=== PATIENT | male | born 1950 | race Caucasian/White ===

== ENCOUNTER 2018-03-06 15:40 | Emergency (ER) | payer MEDICARE, MEDICAID ==
[2018-03-06 15:47] VITALS: BP 124/75
--- NOTE | 2018-03-06 16:19 | ER Document Report ---
ED Extremity Problem, Lower - General Chief Complaint: Foot Injury Stated Complaint: RIGHT FOOT INJURY Time Seen by Provider: 03/06/18 16:08 Mode of Arrival: Ambulatory Information source: Patient Notes: 67-year-old male presents to ED for complaint of pain and swelling to his right foot for 3 weeks. He states they dropped a cabinet on his foot 3 weeks ago and is been painful and swollen since then. He straight states he tried to soak it in some Epson salt but it has not helped. He is on blood thinners Xarelto and aspirin. He has a history of [place] high blood pressure cholesterol thyroid nodules. He has a pacemaker and a defibrillator. TRAVEL OUTSIDE OF THE [place] IN LAST 30 DAYS: No - HPI Patient complains to provider of: Injury, Pain, Swelling Location: Foot Occurred: Other - 3 weeks Where: Home, Indoors Onset/Duration: Persistent Quality of pain: Achy, Sharp Severity: Mild Pain Level: 2 Context: Other Recent injury: Yes Associated symptoms: Painful ambulation Exacerbated by: Hanging down, Movement, Walking Relieved by: Nothing - Related Data Allergies/Adverse Reactions: No Known Allergies Allergy (Verified 03/06/18 15:41) Past Medical History - Social History Smoking Status: Never Smoker Chew tobacco use (# tins/day): No Frequency of alcohol use: None Drug Abuse: None Family History: Reviewed & Not Pertinent Patient has suicidal ideation: No Patient has homicidal ideation: No - Past Medical History Cardiac Medical History: Reports: Hx Heart Attack - x2, Hx Hypercholesterolemia , Hx Hypertension Pulmonary Medical History: Reports: Hx Asthma, Hx Bronchitis EENT Medical History: Reports: None Neurological Medical History: Reports: None Endocrine Medical History: Reports: None Renal/ Medical History: Reports: None Malignancy Medical History: Reports None GI Medical History: Reports: None Musculoskeltal Medical History: Reports Hx Arthritis, Reports Hx Musculoskeletal Deformity, Reports Hx Musculoskeletal Trauma Skin Medical History: Reports None Psychiatric Medical History: Reports: None Traumatic Medical History: Reports: Hx Fractures - Foot Past Surgical History: Reports: Hx Abdominal Surgery - 2 hernias, Hx Cardiac Catheterization - 2stents, Hx Cardiac Surgery - pacer/defib, Hx Orthopedic Surgery - 2 back sx - Immunizations Immunizations up to date: Yes Hx Diphtheria, Pertussis, Tetanus Vaccination: Yes - 08-16-12 Review of Systems - Review of Systems Constitutional: No symptoms reported EENT: No symptoms reported Cardiovascular: No symptoms reported Respiratory: No symptoms reported Gastrointestinal: No symptoms reported Genitourinary: No symptoms reported Male Genitourinary: No symptoms reported Musculoskeletal: Other - Pain swelling and bruising to the right foot for 3 weeks after he dropped a cabinet on his foot Skin: No symptoms reported Hematologic/Lymphatic: No symptoms reported Neurological/Psychological: No symptoms reported Physical Exam - Vital signs Vitals: Temp Pulse Resp BP Pulse Ox 98.8 F 80 18 124/75 96 03/06/18 15:46 03/06/18 15:46 03/06/18 15:46 03/06/18 15:46 03/06/18 15:46 Interpretation: Normal - General General appearance: Appears well, Alert - HEENT Head: Normocephalic, Atraumatic Eyes: Normal Pupils: PERRL - Respiratory Respiratory status: No respiratory distress Chest status: Nontender Breath sounds: Normal Chest palpation: Normal - Cardiovascular Rhythm: Regular Heart sounds: Normal auscultation Murmur: No - Abdominal Inspection: Normal Distension: No distension Bowel sounds: Normal Tenderness: Nontender Organomegaly: No organomegaly - Back Back: Normal, Nontender - Extremities General upper extremity: Normal inspection, Nontender, Normal color, Normal ROM , Normal temperature General lower extremity: Normal temperature, Normal weight bearing. No: Jennifer' s sign Foot: Tender, Ecchymosis, Edema, Metatarsal compress. pain, No evidence of FB, Other - right foot. No: Tender 5th metatarsal - Neurological Neuro grossly intact: Yes Cognition: Normal Orientation: AAOx4 [place] Coma Scale Eye Opening: Spontaneous [place] Coma Scale Verbal: Oriented [place] Coma Scale Motor: Obeys Commands [place] Coma Scale Total: 15 Speech: Normal Motor strength normal: LUE, RUE, LLE, RLE Sensory: Normal - Psychological Associated symptoms: Normal affect, Normal mood - Skin Skin Temperature: Warm Skin Moisture: Dry Skin Color: Normal, Ecchymosis - across the top of the right foot Course - Re-evaluation Re-evalutation: 03/06/18 16:48 Was discussed with patient and patient was given a written report of the x-ray. Patient to follow-up with orthopedics by telephone to schedule follow-up appointment for his fractured foot. Patient will be treated with crutches and given next directions on use of crutches. Patient elevate and ice the foot. - Vital Signs Vital signs: Temp Pulse Resp BP Pulse Ox 98.8 F 80 18 124/75 96 03/06/18 15:46 03/06/18 15:46 03/06/18 15:46 03/06/18 15:46 03/06/18 15:46 - Diagnostic Test Radiology reviewed: Image reviewed, Reports reviewed Procedures - Immobilization Right Foot Time completed: 16:49 Immobilizer type: Crutches, Posterior ankle Performed by: PCT Post-Proc Neuro Vasc Exam: Normal Alignment checked and good: Yes Discharge - Discharge Clinical Impression: Foot fracture, right Qualifiers: Encounter type: initial encounter Fracture type: closed Qualified Code(s): S92.901A - Unspecified fracture of right foot, initial encounter for closed fracture Condition: Stable Disposition: HOME, SELF-CARE Additional Instructions: Foot Fracture You have a fracture in one of the small bones of the foot. Some foot fractures are very serious, while others are no more serious than a sprain. This fracture should heal well, but requires protection for proper healing. Initially, you should elevate and ice pack the foot, and bear no weight on it. Usually, a cast or a walking boot will be required. Some milder foot fractures can be managed with temporary rest, then a firm shoe. Your physician has determined the seriousness of your foot fracture and has outlined the treatment plan for you. You should follow up as instructed to insure that the fracture heals without complications. Call the doctor or return at once if pain or swelling becomes severe, if a re-injury occurs, or if any part of the foot becomes numb. SPLINT PRECAUTIONS: A splint has been placed. This will protect the area while healing begins. Leave the splint in place until you follow-up with the orthopedic doctor or he instructed to remove the splint. Please call the orthopedic doctor tomorrow morning and schedule a follow-up appointment. USE OF CRUTCHES: The doctor has recommended that you not bear weight at this time. You will need to use crutches. Adjust the crutches so the tops come to about two inches under the armpit while you are standing upright. Use your hands -- not your armpits -- to support your weight. To get into a chair, support yourself with one crutch on the injured side. Hold the chair with the other hand, then lower yourself while putting all your weight on the good leg. Going up stairs is `good leg up, step up, then bring up crutches and bad leg.' Down stairs is `bad leg and crutches down, then bring good leg down.' If you develop numbness or swelling in an arm or hand, you are using the crutches incorrectly. Return if you are having any problems with the crutches. ICE & ELEVATION: Apply ice packs frequently against the painful area. Many different schedules are recommended, such as "20 minutes on, 20 minutes off" or "one hour ice, two hours rest." If you need to work, you may need to go longer between ice treatments. You should plan to have the area ice packed AT LEAST one- fourth of the time. The ice should be applied over the wrap, tape, or splint, or over a layer of cloth -- not directly against the skin. Some ice bags have a built-in cloth and can be put directly on the skin. Your injured part should be elevated as much as possible over the next 48 hours. Try to keep the injury above the level of the heart. Avoid use of the injured area. Elevation and rest will decrease the swelling. Acetaminophen Acetaminophen may be taken for pain relief or fever control. It's much safer than aspirin, offering a wider range of "safe" dosages. It is safe during . Some brand names are Tylenol, Panadol, Datril, Anacin 3, Tempra, and Liquiprin. Acetaminophen can be repeated every four hours. The following are maximum recommended dosages: WEIGHT Dose Drops Elixir Chewable( 80mg) (LBS.) drprs=droppers tsp=teaspoon 6 40 mg .4 ml (1/2) 6-11 80 mg .8 ml (full) 1/2 tsp 1 tab 12-16 120 mg 1 1/2 drprs 3/4 tsp 1 1/2 tabs 17-23 160 mg 2 drprs 1 tsp 2 tabs 24-30 240 mg 3 drprs 1 1/2 tsp 3 tabs 30-35 320 mg 2 tsp 4 tabs 36-41 360 mg 2 1/4 tsp 4 1 /2 tabs 42-47 400 mg 2 1/2 tsp 5 tabs 48-53 480 mg 3 tsp 6 tabs 54-59 520 mg 3 1/4 tsp 6 1 /2 tabs 60-64 560 mg 3 1/2 tsp 7 tabs 65-70 600 mg 3 3/4 tsp 7 1 /2 tabs 71-76 640 mg 4 tsp 8 tabs 77-82 720 mg 4 1/2 tsp 9 tabs 83-88 800 mg 5 tsp 10 tabs >89 pounds or adults 650 mg to 900 mg Acetaminophen can be repeated every four hours. Maximum daily dose not to exceed 4000 mg. These maximum recommended dosages are slightly higher than the dosages written on the product container, but these dosages are very safe and well below the toxic dosage for acetaminophen. FOLLOW-UP CARE: If you have been referred to a physician for follow-up care, call the physician s office for an appointment as you were instructed or within the next two days. If you experience worsening or a significant change in your symptoms, notify the physician immediately or return to the Emergency Department at any time for re-evaluation. Referrals: TAMERA HERRMANN MD [ACTIVE STAFF] - Follow up as needed
--- NOTE | 2018-03-06 16:45 | RADIOLOGY REPORT (SQ) ---
EXAM DESCRIPTION: FOOT RIGHT COMPLETE COMPLETED DATE/TIME: 03/06/2018 4:31 pm REASON FOR STUDY: pain injury dropped cabinet on the foot 3 weeks ag COMPARISON: None. NUMBER OF VIEWS: Three views. TECHNIQUE: AP, lateral and oblique radiographic images acquired of the right foot. LIMITATIONS: None. FINDINGS: MINERALIZATION: Normal. BONES: Subacute nondisplaced transverse fracture of the 2nd digit proximal phalanx distal diaphysis; on the frontal radiograph, this appears to extend to the articular surface. JOINTS: No effusions. SOFT TISSUES: No soft tissue swelling. No foreign body. OTHER: No other significant finding. IMPRESSION: Nondisplaced transverse fracture of the 2nd digit proximal phalanx with apparent extensi on to the articular surface. TECHNICAL DOCUMENTATION: JOB ID: [id number] [employer]- All Rights Reserved Reading location - IP/workstation name: [email or web address]
== END 2018-03-06 17:08 | disposition home or self-care (01) ==
LOC: ER 15:40
PROC: 2W3QX1Z Immobilization of Right Lower Leg using Splint (ICD-10-PCS; principal; 2018-03-06)
DX: S92.901A Unspecified fracture of right foot, initial encounter for closed fracture (principal); W20.8XXA Other cause of strike by thrown, projected or falling object, initial encounter; Y92.009 Unspecified place in unspecified non-institutional (private) residence as the place of occurrence of the external cause; Z79.02 Long term (current) use of antithrombotics/antiplatelets; Z95.810 Presence of automatic (implantable) cardiac defibrillator; I25.2 Old myocardial infarction; E78.00 Pure hypercholesterolemia, unspecified; I10 Essential (primary) hypertension
CPT/HCPCS: 99283

== ENCOUNTER 2018-10-14 23:05 | Emergency (ER) | payer MEDICARE, MEDICAID ==
[2018-10-15] MEDS ORDERED: METHYLPREDNISOLONE INJ 125 MG/2 ML SDV IV ONE (01:08)
[2018-10-15] MEDS ORDERED: IPRATROPIUM/ALBUTEROL 0.5-2.5 MG/3 ML AMPUL NEB ONE (01:08)
[2018-10-15] MEDS ORDERED: LIDOCAINE 2% INJ-PF (20 MG/ML) 10 ML AMPUL NEB ONE (01:09)
[2018-10-15] MEDS ORDERED: BENZONATATE 100 MG CAPSULE PO ONE (01:09)
[2018-10-15] MEDS ORDERED: ACETAMINOPHEN 325 MG TABLET PO ONE (01:09)
[2018-10-15] MEDS ORDERED: RINGERS SOLUTION,LACTATED 500 ML IV ONE (01:09)
--- NOTE | 2018-10-15 01:11 | ER Document Report ---
ED General - General Chief Complaint: Shortness Of Breath Stated Complaint: DIFFICULTY BREATHING Time Seen by Provider: 10/15/18 00:40 Notes: Patient is a 68-year-old male with a past medical history of hypertension, hyperlipidemia, CHF, pacemaker and A. fib later placement, COPD, does not currently smoke who presents with 3 days of cough, body aches, sore throat, nasal congestion, found to have fever at time of presentation. States symptoms started gradually and are not improving prompting him to come to the hospital. States that he has had a persistent, nagging cough that often makes it difficult for him to breathe. He has not tried anything for relief of his symptoms at home. Nothing seems to worsen his symptoms. Receive both an influenza and pneumococcal vaccination this year. No history of similar symptoms in the past. Has not seen his primary care doctor regarding today's concerns. TRAVEL OUTSIDE OF THE [place] IN LAST 30 DAYS: No - Related Data Allergies/Adverse Reactions: No Known Allergies Allergy (Verified 03/06/18 15:41) Past Medical History - General Information source: Patient - Social History Smoking Status: Former Smoker Frequency of alcohol use: None Drug Abuse: None Lives with: Spouse/Significant other Family History: Reviewed & Not Pertinent - Past Medical History Cardiac Medical History: Reports: Hx Heart Attack - x2, Hx Hypercholesterolemia, Hx Hypertension Pulmonary Medical History: Reports: Hx Asthma, Hx Bronchitis Renal/ Medical History: Denies: Hx Peritoneal Dialysis Musculoskeletal Medical History: Reports Hx Arthritis, Reports Hx Musculoskeletal Deformity, Reports Hx Musculoskeletal Trauma Traumatic Medical History: Reports: Hx Fractures - Foot Past Surgical History: Reports: Hx Abdominal Surgery - 2 hernias, Hx Cardiac Catheterization - 2stents, Hx Cardiac Surgery - pacer/defib, Hx Orthopedic Surgery - 2 back sx - Immunizations Immunizations up to date: Yes Hx Diphtheria, Pertussis, Tetanus Vaccination: Yes - 08-16-12 Review of Systems - Review of Systems Notes: Constitutional: Positive for fever. HENT: Positive for sore throat. Eyes: Negative for visual changes. Cardiovascular: Negative for chest pain. Respiratory: Positive for shortness of breath and cough Gastrointestinal: Negative for abdominal pain, vomiting or diarrhea. Genitourinary: Negative for dysuria. Musculoskeletal: Negative for back pain. Skin: Negative for rash. Neurological: Negative for headaches, weakness or numbness. 10 point ROS negative except as marked above and in HPI. Physical Exam - Vital signs Vitals: Temp Pulse Resp BP Pulse Ox 101.2 F H 100 24 H 118/66 94 10/14/18 23:37 10/14/18 23:37 10/14/18 23:37 10/14/18 23:37 10/14/18 23:37 Interpretation: Tachypneic, Febrile Notes: PHYSICAL EXAMINATION: GENERAL: Appears moderately unwell but in no acute distress HEAD: Atraumatic, normocephalic. EYES: Pupils equal round and reactive to light, extraocular movements intact, sclera anicteric, conjunctiva are normal. ENT: nares patent, oropharynx clear without exudates. Amount of dry mucous membranes. NECK: Normal range of motion, supple without lymphadenopathy LUNGS: Scattered expiratory wheezing in all lung dinh. HEART: Regular rate and rhythm without murmurs ABDOMEN: Soft, nontender, normoactive bowel sounds. No guarding, no rebound. No masses appreciated. EXTREMITIES: Normal range of motion, no pitting or edema. No cyanosis. NEUROLOGICAL: No focal neurological deficits. Moves all extremities spontaneously and on command. PSYCH: Normal mood, normal affect. SKIN: Warm, Dry, normal turgor, no rashes or lesions noted. Course - Re-evaluation Re-evalutation: 10/15/18 01:10 Presentation of a moderately ill-appearing 68-year-old male with fever, shortness of breath, persistent cough and body aches. Overall picture concerning for influenza versus bacterial pneumonia. Patient will undergo chest x-ray, standard laboratory assessment including blood cultures, venous blood gas, lactate. IV access will be established. Patient will begin on gentle fluid resuscitation as has a history of CHF. Antipyresis with acetaminophen provided. Will also begin nebulizer treatments as patient does have a history of COPD. 10/15/18 03:06 Chest x-ray without any evidence of acute infiltrate. Labs are broadly unremarkable. Patient is maintaining saturations of 93-94% on room air and rev iew of previous records shows the patient is consistently between 93 and 94% at baseline secondary to underlying COPD. Although influenza testing is negative patient's clinical picture is most consistent with influenza and this is likely a false negative test. Patient does have available nebulizer treatments at home. Has been started on a 5-day course of prednisone. Risks and benefits conversation was had regarding the use of Tamiflu and patient did decline. At this time will discharge with return precautions and follow-up recommendations. Verbal discharge instructions given a the bedside and opportunity for questions given. Medication warnings reviewed. Patient is in agreement with this plan and has verbalized understanding of return precautions and the need for primary care follow-up in the next 24-48 hours. - Vital Signs Vital signs: Temp Pulse Resp BP Pulse Ox 101.2 F H 100 24 H 118/66 94 10/14/18 23:37 10/14/18 23:37 10/14/18 23:37 10/14/18 23:37 10/14/18 23:37 - Laboratory Result Diagrams: 10/15/18 01:05 10/15/18 01:05 Laboratory results interpreted by me: 10/15/18 10/15/18 10/15/18 01:05 01:05 01:05 WBC 12.1 H RBC 4.13 L Hgb 12.8 L Hct 37.1 L Monocytes % 13.7 H Absolute Neutrophils 8.7 H Absolute Monocytes 1.7 H VBG pH 7.43 H Sodium 134.9 L Glucose 154 H - Diagnostic Test Radiology reviewed: Image reviewed, Reports reviewed Radiology results interpreted by me: 10/15/18 03:08 Chest x-ray: No acute infiltrate or pneumothorax - EKG Interpretation by Me Additional EKG results interpreted by me: 10/15/18 03:08 Ventricularly paced rhythm, rate 92. No ST elevations or depressions. Discharge - Discharge Clinical Impression: Shortness of breath, COPD exacerbation, Lower respiratory infection Fever Qualifiers: Fever type: unspecified Qualified Code(s): R50.9 - Fever, unspecified Condition: Stable Disposition: HOME, SELF-CARE Additional Instructions: You were seen for a COPD exacerbation. Your symptoms improved with treatment here in the emergency department. However, it is very important that you return to the emergency department immediately if you began to have worsening difficulty breathing that does not respond to your normal home nebulizers. You are also being sent home on a five-day course of steroids that you should start taking tomorrow. In regards to your fever and additional symptoms: these are likely due to a vir al infection either influenza or similar virus. The only treatment at this time is supportive care including drinking plenty of fluids, Tylenol and ibuprofen. Your symptoms will likely last for 7-10 days. Please return to the emergency department immediately if you become confused, have persistent vomiting, pass out, have severe headache, or have any other symptoms that are worrisome to you. Follow-up with your primary care doctor in the next 24-48 hours. Prescriptions: Benzonatate [Tessalon Perles 100 mg Capsule] 100 mg PO Q8HP PRN #40 capsule PRN Reason: Prednisone [Deltasone 20 mg Tablet] 2 tab PO DAILY 5 Days tablet
[2018-10-15 01:22] LABS: ABSOLUTE LYMPHOCYTES (AUTO) 1.7 10^3/uL (0.5-4.7); ABSOLUTE MONOCYTES (AUTO) 1.7 10^3/uL (0.1-1.4); ABSOLUTE NEUT (AUTO) 8.7 10^3/uL (1.7-8.2); BASOPHILS % (AUTO) 0.3 % (0-2); EOSINOPHILS % (AUTO) 0.2 % (0-6); HEMATOCRIT 37.1 % (37.9-51.0); HEMOGLOBIN 12.8 g/dL (13.5-17.0); LYMPHOCYTES % (AUTO) 13.9 % (13-45); MEAN CORPUSCULAR HEMOGLOBIN 30.9 pg (27.0-33.4); MEAN CORPUSCULAR HGB CONC 34.4 g/dL (32.0-36.0); MEAN CORPUSCULAR VOLUME 90 fl (80-97); MONOCYTES % (AUTO) 13.7 % (3-13); PLATELET COUNT 197 10^3/uL (150-450); RED BLOOD COUNT 4.13 10^6/uL (4.35-5.55); RED CELL DISTRIBUTION WIDTH 13.9 % (11.5-14.0); SEGMENTED NEUTROPHILS % (AUTO) 71.9 % (42-78); TOTAL CELLS COUNTED % (AUTO) 100 %; VENOUS BLOOD BASE EXCESS 0.1 mmol/L; VENOUS BLOOD HCO3 24.1 mmol/L (20-32); VENOUS BLOOD PH 7.43 (7.30-7.42); WHITE BLOOD COUNT 12.1 10^3/uL (4.0-10.5)
[2018-10-15 01:40] LABS: ANION GAP 14 (5-19); BLOOD UREA NITROGEN 19 mg/dL (7-20); CALCIUM 8.8 mg/dL (8.4-10.2); CARBON DIOXIDE 23 mmol/L (22-30); CHLORIDE 98 mmol/L (98-107); GLUCOSE 154 mg/dL (75-110); POTASSIUM 4.2 mmol/L (3.6-5.0); SODIUM 134.9 mmol/L (137-145)
--- NOTE | 2018-10-15 01:46 | RADIOLOGY REPORT (SQ) ---
EXAM DESCRIPTION: XR CHEST 1 VIEW COMPLETED DATE/TME: 10/15/2018 00:40 CLINICAL HISTORY: 68 years Male, sob, fever COMPARISON: 05/22/16 NUMBER OF VIEWS/TECHNIQUE: 1/AP FINDINGS: Adequate lung volume, clear parenchyma, normal cardiac silhouette, and intact bony thorax.Left cardiac stimulator with leads. Smooth chronic thickening at the right pleura. IMPRESSION: No acute cardiopulmonary findings.
[2018-10-15 02:29] LABS: A TYPE INFLUENZA AG NEGATIVE (NEGATIVE); B INFLUENZA AG NEGATIVE (NEGATIVE)
[2018-10-15 03:21] VITALS: BP 126/72
--- NOTE | 2018-10-15 08:41 | EKG REPORT ---
SEVERITY:- ABNORMAL ECG - VENTRICULAR-PACED RHYTHM : Confirmed by: Jacqueline Knox MD 15-Oct-2018 08:40:54
== END 2018-10-15 03:29 | disposition home or self-care (01) ==
LOC: ER 23:05
DX: J44.0 Chronic obstructive pulmonary disease with (acute) lower respiratory infection (principal); J22 Unspecified acute lower respiratory infection; J44.1 Chronic obstructive pulmonary disease with (acute) exacerbation; R05 Cough; J02.9 Acute pharyngitis, unspecified; R09.81 Nasal congestion; R50.9 Fever, unspecified; R06.02 Shortness of breath; I10 Essential (primary) hypertension; I25.2 Old myocardial infarction; Z87.891 Personal history of nicotine dependence
CPT/HCPCS: 93005; 94640; 99285; 96361; 96374; 36415; 87040; 85025; 80048; 82803; 83605; 87804; 71045; 93010; A9270 ×3; J2930; J7120; J3490; J7620

== ENCOUNTER 2018-10-17 04:48 | Inpatient (IN) | payer MEDICARE, MEDICAID ==
[2018-10-17] MEDS ORDERED: IPRATROPIUM/ALBUTEROL 0.5-2.5 MG/3 ML AMPUL NEB ONE ×2 (05:03→05:11)
[2018-10-17] MEDS ORDERED: METHYLPREDNISOLONE INJ 125 MG/2 ML SDV IV ONE (05:04)
[2018-10-17] MEDS ORDERED: NORMAL SALINE 1000 ML 1,000 ML IV ONE (05:04)
[2018-10-17 05:15] LABS: HEMATOCRIT 38.7 % (37.9-51.0); HEMOGLOBIN 13.3 g/dL (13.5-17.0); MEAN CORPUSCULAR HEMOGLOBIN 30.8 pg (27.0-33.4); MEAN CORPUSCULAR HGB CONC 34.4 g/dL (32.0-36.0); MEAN CORPUSCULAR VOLUME 90 fl (80-97); PLATELET COUNT 272 10^3/uL (150-450); RED BLOOD COUNT 4.31 10^6/uL (4.35-5.55); WHITE BLOOD COUNT 14.5 10^3/uL (4.0-10.5)
[2018-10-17] MEDS: MAGNESIUM SULFATE/D5W 1 GM/100 ML RTUPB IV SCH ×2 (05:16→05:43)
[2018-10-17] MEDS ORDERED: IPRATROPIUM/ALBUTEROL 0.5-2.5 MG/3 ML AMPUL NEB PRN (05:22)
[2018-10-17 05:27] LABS: ALANINE AMINOTRANSFERASE 110 U/L (21-72); ALKALINE PHOSPHATASE 56 U/L (38-126); ANION GAP 12 (5-19); ASPARTATE AMINO TRANSFERASE 85 U/L (17-59); BILIRUBIN,DIRECT 0.4 mg/dL (0.0-0.4); BILIRUBIN,TOTAL 0.9 mg/dL (0.2-1.3); BLOOD UREA NITROGEN 22 mg/dL (7-20); CALCIUM 9.1 mg/dL (8.4-10.2); CARBON DIOXIDE 26 mmol/L (22-30); CHLORIDE 100 mmol/L (98-107); GLUCOSE 157 mg/dL (75-110); POTASSIUM 4.5 mmol/L (3.6-5.0); SODIUM 138.3 mmol/L (137-145)
[2018-10-17 05:34] LABS: VENOUS BLOOD BASE EXCESS 3.4 mmol/L; VENOUS BLOOD PCO2 37.3 mmHg (35-63); VENOUS BLOOD PH 7.48 (7.30-7.42)
[2018-10-17 05:36] LABS: ABSOLUTE LYMPHOCYTES# (MANUAL) 1.9 10^3/uL (0.5-4.7); ABSOLUTE MONOCYTES # (MANUAL) 0.6 10^3/uL (0.1-1.4); ABSOLUTE NEUTROPHILS# (MANUAL) 11.9 10^3/uL (1.7-8.2); BASOPHILS % (MANUAL) 0 % (0-2); EOSINOPHILS % (MANUAL) 1 % (0-6); LYMPHOCYTES % (MANUAL) 13 % (13-45); MONOCYTES % (MANUAL) 4 % (3-13); SEGMENTED NEUTROPHILS % (MAN) 82 % (42-78); TOTAL CELLS COUNTED 100
[2018-10-17 05:37] LABS: TOXIC GRANULATION 1+; TOXIC VACUOLATION PRESENT
[2018-10-17 05:38] LABS: ANISOCYTOSIS SLIGHT; BURR CELLS 1+; OVALOCYTES 2+; PLATELET COMMENT ADEQUATE; POIKILOCYTOSIS 2+; TEAR DROP CELLS 2+
--- NOTE | 2018-10-17 05:57 | RADIOLOGY REPORT (SQ) ---
EXAM DESCRIPTION: XR CHEST 2 VIEWS COMPLETED DATE/TME: 10/17/2018 05:05 CLINICAL HISTORY: 68 years Male, sob COMPARISON: 2 days prior. NUMBER OF VIEWS/TECHNIQUE: 1/AP FINDINGS: Moderate left lower retrocardiac consolidate. Mild mixed interstitial and airspace opacity.Atherosclerotic vascular disease. Left cardiac stimulator with leads. Mildly enlarged cardiac silhouette. No pneumothorax. Stable bony thorax. IMPRESSION: Interval worsening includes a moderate left lower retrocardiac consolidate.
--- NOTE | 2018-10-17 05:57 | ER Document Report ---
ED Respiratory Problem - General Chief Complaint: Shortness Of Breath Stated Complaint: DECREASED OXYGEN LEVELS Time Seen by Provider: 10/17/18 05:53 Primary Care Provider: TITO INFANTE MD [Primary Care Provider] - Follow up as needed Notes: Patient is a 68-year-old male with a past medical history of hypertension, h yperlipidemia, CHF, pacemaker and A. fib, COPD, does not currently smoke who presents with 6 days of cough, body aches, nasal congestion, generalized shortness of breath. Patient states he was seen at this facility on 10/14/2018 was given breathing treatments and sent home with a prescription for steroids. Patient states he has been taking his albuterol treatments every 4 hours and has been taking steroids as prescribed. States this morning he noticed he had an increase in respiratory distress and his home oxygen saturation was 86% which is why he re-presents to the emergency room. Patient states he did receive both an influenza and pneumococcal vaccination this year. Review of previous records shows the patient is consistently between 93 and 94% at baseline secondary to underlying COPD. Patient is denying any chest pain or pressure. States it just feels as though it is hard to catch his breath. Patient is obviously tachypneic talking in 1-2 word sentences. TRAVEL OUTSIDE OF THE [place] IN LAST 30 DAYS: No - Related Data Allergies/Adverse Reactions: No Known Allergies Allergy (Verified 03/06/18 15:41) Past Medical History - General Information source: Patient, Relative - Social History Smoking Status: Former Smoker Frequency of alcohol use: None Drug Abuse: None Family History: Reviewed & Not Pertinent Patient has suicidal ideation: No Patient has homicidal ideation: No - Past Medical History Cardiac Medical History: Reports: Hx Congestive Heart Failure, Hx Heart Attack - x2, Hx Hypercholesterolemia, Hx Hypertension Pulmonary Medical History: Reports: Hx Asthma, Hx Bronchitis, Hx COPD Renal/ Medical History: Denies: Hx Peritoneal Dialysis Musculoskeletal Medical History: Reports Hx Arthritis, Reports Hx Musculoskeletal Deformity, Reports Hx Musculoskeletal Trauma Traumatic Medical History: Reports: Hx Fractures - Foot Past Surgical History: Reports: Hx Abdominal Surgery - 2 hernias, Hx Cardiac Ca theterization - 2stents, Hx Cardiac Surgery - pacer/defib, Hx Orthopedic Surgery - 2 back sx - Immunizations Immunizations up to date: Yes Hx Diphtheria, Pertussis, Tetanus Vaccination: Yes - 12-18-12 Review of Systems - Review of Systems Constitutional: See HPI EENT: See HPI Cardiovascular: See HPI Respiratory: See HPI Gastrointestinal: No symptoms reported Genitourinary: No symptoms reported Male Genitourinary: No symptoms reported Musculoskeletal: No symptoms reported Skin: No symptoms reported Hematologic/Lymphatic: No symptoms reported Neurological/Psychological: No symptoms reported Physical Exam - Vital signs Vitals: Temp Pulse Resp BP Pulse Ox 100 F 114 H 32 H 153/84 H 91 L 10/17/18 04:50 10/17/18 04:50 10/17/18 04:50 10/17/18 04:50 10/17/18 04:50 - Notes Notes: GENERAL: Alert, interacts well. Tachypneic HEAD: Normocephalic, atraumatic. EYES: Pupils equal, round, and reactive to light. Extraocular movements intact. ENT: Oral mucosa moist, tongue midline. NECK: Full range of motion. Supple. Trachea midline. LUNGS: No discernible rales, or rhonchi. Diminished inspiratory, faint expiratory wheeze heard all dinh. Patient's not moving much air. HEART: Tachycardic rate and rhythm. No murmur ABDOMEN: Soft, non-tender. Non-distended. Bowel sounds present in all 4 quadrants. EXTREMITIES: Moves all 4 extremities spontaneously. No edema, normal radial and dorsalis pedis pulses bilaterally. No cyanosis. BACK: no cervical, thoracic, lumbar midline tenderness. No saddle anesthesia, normal distal neurovascular exam. NEUROLOGICAL: Alert and oriented x3. Normal speech. cranial nerves II through XII grossly intact PSYCH: Normal affect, normal mood. SKIN: Warm, dry, normal turgor. No rashes or lesions noted. Course - Re-evaluation Re-evalutation: 10/17/18 06:11 After initial DuoNeb treatment in the emergency department patient continued to be tachypneic. Patient continued to speak in only 1-2 word sentences was quickly placed on BiPAP with in-line DuoNeb treatments. Patient has received Solu-Medrol, magnesium, DuoNeb treatments. Patient's oxygen saturation now on BiPAP with continued DuoNeb treatments is 98%. Patient states "I feel a whole lot better." Patient's chest x-ray is reading as a left lower retrocardiac pneumonia. Patient's does have a leukocytosis of 14.5 which is increased from 12.1 a few days ago, will treat for community-acquired pneumonia. Discussed case in person with hospitalist Dr. Bell who will admit the patient to IMCU. Patient's heart rate is 101, blood pressure 138/85, SPO2 98% on BiPAP. - Vital Signs Vital signs: Temp Pulse Resp BP Pulse Ox 100 F 114 H 28 H 138/85 H 95 10/17/18 04:50 10/17/18 04:50 10/17/18 06:01 10/17/18 06:01 10/17/18 06:01 - Laboratory Result Diagrams: 10/17/18 05:00 10/17/18 05:00 Laboratory results interpreted by me: 10/17/18 10/17/18 10/17/18 05:00 05:00 05:24 WBC 14.5 H RBC 4.31 L Hgb 13.3 L Seg Neuts % (Manual) 82 H Abs Neuts (Manual) 11.9 H VBG pH 7.48 H BUN 22 H Glucose 157 H AST 85 H ALT 110 H Critical Care Note - Critical Care Note Total time excluding time spent on procedures (mins): 45 Comments: Please allow for 45 minutes of critical care time due to patient being in moderate respiratory distress. Quickly moving the patient to BiPAP, multiple reassessments, and admission to IMCU. Discharge - Discharge Clinical Impression: COPD exacerbation Pneumonia Qualifiers: Pneumonia type: due to unspecified organism Laterality: left Lung location: lower lobe of lung Qualified Code(s): J18.1 - Lobar pneumonia, unspecified organism Condition: Stable Disposition: ADMITTED INPATIENT Admitting Provider: Hospitalist - Dr. Bell Unit Admitted: [facility] Referrals: TITO INFANTE MD [Primary Care Provider] - Follow up as needed
[2018-10-17] MEDS ORDERED: ACETAMINOPHEN 325 MG TABLET PO ONE (05:59)
[2018-10-17] MEDS ORDERED: CEFTRIAXONE 1 GM/D5W RTU 1 GM/50 ML RTUPB IV ONE (06:03)
[2018-10-17] MEDS ORDERED: AZITHROMYCIN INJ 500 MG VIAL IV ONE (06:04)
--- NOTE | 2018-10-17 07:36 | EKG REPORT ---
SEVERITY:- ABNORMAL ECG - AFIB/FLUTTER AND VENTRICULAR-PACED RHYTHM : Confirmed by: Saúl Yousif MD 17-Oct-2018 07:34:43
--- NOTE | 2018-10-17 08:23 | PDOC H&P ---
History of Present Illness Admission Date/PCP: 10/17/18 06:23 TITO INFANTE MD History of Present Illness: RIKKI LAMBERT is a 68 year old male patient with multiple comorbidities presented with chief complaint of shortness of breath. During my encounter patient is in deep sleep with full facemask BiPAP. So brief history is obtained from his which who was in the room during my encounter. Per his this is his second visit to the ED. Per ED documentation patient p resented with 6 days history of cough, body aches, nasal congestion, and shortness of breath. Patient states he was seen at this facility on October 14, 2018 at which time he was given breathing treatment and sent in home with a prescription for steroid. He states yesterday morning he noticed he had an increased respiratory distress and his home oxygen saturation was 86% which is while he represents to the emergency room. His past medical history significant for hypertension, hyperlipidemia, CHF, A. fib status post AICD placement, and COPD. For the detailed history and review of systems unobtainable. Past Medical History Cardiac Medical History: Reports: Congestive Heart Failure, Myocardial Infarction - x2, Hyperlipidema, Hypertension Pulmonary Medical History: Reports: Asthma, Bronchitis, Chronic Obstructive Pulmonary Disease (COPD) Musculoskeltal Medical History: Reports: Arthritis Past Surgical History Past Surgical History: Reports: Cardiac Catheterization - 2stents, Orthopedic Surgery - 2 back sx Social History Smoking Status: Former Smoker - Advance Directive Resuscitation Status: Full Code Family History Family History: Reviewed & Not Pertinent Parental Family History Reviewed: Yes Children Family History Reviewed: Yes Sibling(s) Family History Reviewed.: Yes Medication/Allergy Allergies/Adverse Reactions: No Known Allergies Allergy (Verified 10/17/18 07:59) Review of Systems ROS unobtainable: Due to mental status Physical Exam Vital Signs: Temp Pulse Resp BP Pulse Ox 100 F 114 H 25 H 134/83 H 92 10/17/18 04:50 10/17/18 04:50 10/17/18 07:01 10/17/18 07:01 10/17/18 07:01 Intake & Output 10/16/18 10/17/18 10/18/18 06:59 06:59 06:59 Intake Total 250 Balance 250 Weight 133.81 kg General appearance: PRESENT: no acute distress Head exam: PRESENT: atraumatic Respiratory exam: PRESENT: decreased breath sounds, wheezes Cardiovascular exam: PRESENT: RRR. ABSENT: diastolic murmur, rubs, systolic murmur GI/Abdominal exam: PRESENT: normal bowel sounds, soft. ABSENT: distended, guarding, mass, organolmegaly, rebound, tenderness Results Laboratory Results: 10/17/18 05:00 10/17/18 05:00 10/17/18 10/17/18 10/17/18 05:00 05:00 05:24 WBC 14.5 H RBC 4.31 L Hgb 13.3 L Hct 38.7 MCV 90 MCH 30.8 MCHC 34.4 RDW 14.0 Plt Count 272 Seg Neutrophils % Not Reportable Lymphocytes % Not Reportable Monocytes % Not Reportable Eosinophils % Not Reportable Basophils % Not Reportable Absolute Neutrophils Not Reportable Absolute Lymphocytes Not Reportable Absolute Monocytes Not Reportable Absolute Eosinophils Not Reportable Absolute Basophils Not Reportable VBG pH 7.48 H VBG pCO2 37.3 VBG HCO3 27.0 VBG Base Excess 3.4 Sodium 138.3 Potassium 4.5 Chloride 100 Carbon Dioxide 26 Anion Gap 12 BUN 22 H Creatinine 1.02 Est GFR ( Amer) > 60 Est GFR (Non-Af Amer) > 60 Glucose 157 H Calcium 9.1 Total Bilirubin 0.9 AST 85 H ALT 110 H Alkaline Phosphatase 56 Total Protein 7.0 Albumin 4.0 10/17/18 05:00 NT-Pro-B Natriuret Pep 3450 H Impressions: Chest X-Ray 10/17/18 05:05 IMPRESSION: Interval worsening includes a moderate left lower retrocardiac consolidate. Assessment & Plan - Diagnosis (1) Left lower lobe pneumonia Qualifiers: Aspiration pneumonia type: unspecified Is this a current diagnosis for this admission?: Yes Plan: Patient is going to be started on Levaquin. We will adjust his antibiotics based on his clinical progress and culture results. (2) COPD with exacerbation Is this a current diagnosis for this admission?: Yes Plan: We will continue with bronchodilators, Solu-Medrol, supplemental oxygen and incentive spirometry (3) Obstructive sleep apnea Is this a current diagnosis for this admission?: Yes Plan: Continue his CPAP home state (4) Chronic a-fib Is this a current diagnosis for this admission?: Yes Plan: Rate controlled continue home medications. (5) Chronic CHF Qualifiers: Heart failure type: systolic Qualified Code(s): I50.22 - Chronic systolic (congestive) heart failure Is this a current diagnosis for this admission?: Yes Plan: Is a BNP is 3400. But the chest x-ray and clinically he does not have a flare of CHF. I will continue his cardiac protective medications. - Inpatient Certification Medical Necessity: Significant Comorbidiites Make Outpatient Treatment Too Risky, Need for IV Antibiotics
[2018-10-17] MEDS ORDERED: OXYCODONE-ACETAMINOPHEN 5-325 MG TABLET PO PRN (08:25)
[2018-10-17] MEDS ORDERED: ONDANSETRON HCL INJ/PF 4 MG/2 ML SDV IV PRN (08:25)
[2018-10-17] MEDS ORDERED: FUROSEMIDE INJ/PF 40 MG/4 ML SDV IV ONE (08:35)
[2018-10-17] MEDS ORDERED: ENOXAPARIN SODIUM INJ 40 MG/0.4 ML DISP.SYRIN SUBCUT SCH (10:00)
[2018-10-17] MEDS ORDERED: FUROSEMIDE INJ/PF 100 MG/10 ML SDV IV ONE (10:00)
[2018-10-17] MEDS: FLUTICASONE/SALMETEROL DISKUS 500-50 MCG/DOSE IH SCH ×2 (10:13→21:29)
[2018-10-17] MEDS: FAMOTIDINE 20 MG TABLET PO SCH ×2 (10:14→21:29)
[2018-10-17] MEDS: IPRATROPIUM/ALBUTEROL 0.5-2.5 MG/3 ML AMPUL NEB SCH ×3 (11:51→20:12)
[2018-10-17] MEDS ORDERED: METHYLPREDNISOLONE INJ 40 MG/1 ML SDV IV SCH (12:00)
[2018-10-17 12:02] LABS: ARTERIAL BLOOD BASE EXCESS 3.4 mmol/L; ARTERIAL BLOOD H2CO3 1.13 mmol/L (1.05-1.35); ARTERIAL BLOOD PCO2 37.7 mmHg (35-45); ARTERIAL BLOOD PH 7.47 (7.35-7.45); ARTERIAL BLOOD PO2 75.6 mmHg (80-100); ARTERIAL BLOOD TOTAL CO2 28.2 mmol/L (23-27)
[2018-10-17 12:10] LABS: ARTERIAL BLOOD FIO2 ROOM AIR
[2018-10-17] MEDS: METHYLPREDNISOLONE INJ 125 MG/2 ML SDV IV SCH ×3 (14:00→23:33)
[2018-10-17] MEDS: CEFTRIAXONE 2 GM/D5W RTU 2 GM/50 ML RTUPB IV SCH (21:29)
[2018-10-18] MEDS: IPRATROPIUM/ALBUTEROL 0.5-2.5 MG/3 ML AMPUL NEB SCH ×6 (00:50→21:19)
[2018-10-18] MEDS ORDERED: CARVEDILOL 12.5 MG TABLET PO ONE (01:00)
[2018-10-18] MEDS ORDERED: RIVAROXABAN 10 MG TABLET PO ONE (01:00)
[2018-10-18] MEDS: AZITHROMYCIN 500 MG in DEXTROSE 5%-WATER 250 ML IV SCH (05:46)
[2018-10-18] MEDS: METHYLPREDNISOLONE INJ 125 MG/2 ML SDV IV SCH ×3 (05:47→21:33)
[2018-10-18 06:56] LABS: ABSOLUTE LYMPHOCYTES (AUTO) 1.3 10^3/uL (0.5-4.7); ABSOLUTE MONOCYTES (AUTO) 1.1 10^3/uL (0.1-1.4); ABSOLUTE NEUT (AUTO) 11.8 10^3/uL (1.7-8.2); BASOPHILS % (AUTO) 0.4 % (0-2); HEMATOCRIT 35.5 % (37.9-51.0); HEMOGLOBIN 12.4 g/dL (13.5-17.0); LYMPHOCYTES % (AUTO) 9.2 % (13-45); MEAN CORPUSCULAR HGB CONC 34.8 g/dL (32.0-36.0); MEAN CORPUSCULAR VOLUME 89 fl (80-97); MONOCYTES % (AUTO) 7.6 % (3-13); PLATELET COUNT 246 10^3/uL (150-450); RED BLOOD COUNT 3.99 10^6/uL (4.35-5.55); RED CELL DISTRIBUTION WIDTH 13.7 % (11.5-14.0); SEGMENTED NEUTROPHILS % (AUTO) 82.8 % (42-78); TOTAL CELLS COUNTED % (AUTO) 100 %; WHITE BLOOD COUNT 14.2 10^3/uL (4.0-10.5)
[2018-10-18 07:14] LABS: ANION GAP 11 (5-19); BLOOD UREA NITROGEN 24 mg/dL (7-20); CALCIUM 8.8 mg/dL (8.4-10.2); CARBON DIOXIDE 28 mmol/L (22-30); CHLORIDE 98 mmol/L (98-107); GLUCOSE 240 mg/dL (75-110); POTASSIUM 4.8 mmol/L (3.6-5.0); SODIUM 137.3 mmol/L (137-145)
[2018-10-18] MEDS: FLUTICASONE/SALMETEROL DISKUS 500-50 MCG/DOSE IH SCH ×2 (09:52→22:00)
[2018-10-18] MEDS: FAMOTIDINE 20 MG TABLET PO SCH ×2 (09:53→21:33)
[2018-10-18] MEDS: CARVEDILOL 12.5 MG TABLET PO SCH ×2 (09:53→21:34)
[2018-10-18] MEDS ORDERED: GLUCAGON,HUMAN RECOMB 1 MG INJ IM PRN (14:08)
[2018-10-18] MEDS ORDERED: DEXTROSE 50%-WATER 25 GM/50 ML DISP.SYRIN IV PRN ×2 (14:08)
[2018-10-18] MEDS ORDERED: DEXTROSE 40% GEL 15 GM TUBE PO PRN ×2 (14:08)
[2018-10-18] MEDS ORDERED: RIVAROXABAN 10 MG TABLET PO SCH (17:00)
[2018-10-18] MEDS: RIVAROXABAN 10 MG TABLET PO SCH (17:16)
[2018-10-18] MEDS: INSULIN LISPRO 100 UNIT/ML 3 ML VIAL SUBCUT SCH ×2 (17:17→21:34)
[2018-10-18] MEDS: CEFTRIAXONE 2 GM/D5W RTU 2 GM/50 ML RTUPB IV SCH (21:35)
[2018-10-19] MEDS: IPRATROPIUM/ALBUTEROL 0.5-2.5 MG/3 ML AMPUL NEB SCH ×6 (00:57→21:09)
[2018-10-19] MEDS: AZITHROMYCIN 500 MG in DEXTROSE 5%-WATER 250 ML IV SCH (05:48)
[2018-10-19] MEDS: METHYLPREDNISOLONE INJ 125 MG/2 ML SDV IV SCH ×3 (05:59→21:30)
[2018-10-19 06:10] LABS: ANION GAP 7 (5-19); BLOOD UREA NITROGEN 24 mg/dL (7-20); CALCIUM 8.9 mg/dL (8.4-10.2); CARBON DIOXIDE 31 mmol/L (22-30); CHLORIDE 100 mmol/L (98-107); GLUCOSE 206 mg/dL (75-110); POTASSIUM 4.7 mmol/L (3.6-5.0); SODIUM 138.1 mmol/L (137-145)
--- NOTE | 2018-10-19 06:37 | PDOC PROGRESS REPORT ---
Subjective Progress Note for:: 10/18/18 Subjective:: Patient reports feeling slightly better. Reason For Visit: LEFT LOWER LOBE PNEUMONIA, COPD EXACERBATION Physical Exam Vital Signs: Temp Pulse Resp BP Pulse Ox 98.4 F 80 20 109/62 96 10/18/18 16:22 10/18/18 17:06 10/18/18 17:06 10/18/18 16:22 10/18/18 17:06 Intake & Output 10/17/18 10/18/18 10/19/18 06:59 06:59 06:59 Intake Total 250 2546 1711 Balance 250 2546 1711 Weight 133.81 kg 118.8 kg General appearance: PRESENT: no acute distress, cooperative, well-developed Respiratory exam: PRESENT: clear to auscultation kilo, symmetrical, unlabored. ABSENT: rales, rhonchi, wheezes Cardiovascular exam: PRESENT: RRR, +S1, +S2 GI/Abdominal exam: PRESENT: normal bowel sounds, soft. ABSENT: tenderness Extremities exam: ABSENT: pedal edema Neurological exam: PRESENT: alert, awake, oriented to person, oriented to place, oriented to time, oriented to situation, CN II-XII grossly intact Psychiatric exam: PRESENT: appropriate affect, normal mood. ABSENT: agitated, anxious Focused psych exam: ABSENT: delusional, restlessness Results Laboratory Results: 10/18/18 06:17 10/18/18 06:17 10/18/18 10/18/18 06:17 06:17 WBC 14.2 H RBC 3.99 L Hgb 12.4 L Hct 35.5 L MCV 89 MCH 31.0 MCHC 34.8 RDW 13.7 Plt Count 246 Seg Neutrophils % 82.8 H Lymphocytes % 9.2 L Monocytes % 7.6 Eosinophils % 0.0 Basophils % 0.4 Absolute Neutrophils 11.8 H Absolute Lymphocytes 1.3 Absolute Monocytes 1.1 Absolute Eosinophils 0.0 Absolute Basophils 0.0 Sodium 137.3 Potassium 4.8 Chloride 98 Carbon Dioxide 28 Anion Gap 11 BUN 24 H Creatinine 0.77 Est GFR ( Amer) > 60 Est GFR (Non-Af Amer) > 60 Glucose 240 H Calcium 8.8 10/17/18 05:00 NT-Pro-B Natriuret Pep 3450 H Impressions: Chest X-Ray 10/17/18 05:05 IMPRESSION: Interval worsening includes a moderate left lower retrocardiac consolidate. Assessment & Plan - Diagnosis (1) Left lower lobe pneumonia Qualifiers: Aspiration pneumonia type: unspecified Is this a current diagnosis for this admission?: Yes Plan: Continue current antibiotic therapy. Patient reports feeling improved. Continue oxygen supplementation. Continue home inhaler regimen. There is a question of COPD but the patient performed spirometry as an outpatient while sick. I would suggest retesting when he is back to baseline. (2) Chronic a-fib Is this a current diagnosis for this admission?: Yes Plan: Continue carvedilol with anticoagulation. (3) Coronary artery disease Qualifiers: Coronary Disease-Associated Artery/Lesion type: [place] artery Is this a current diagnosis for this admission?: Yes Plan: Continue current regimen. The patient has a history of chronic congestive failure but he is asymptomatic at this time. (4) Hyperglycemia Is this a current diagnosis for this admission?: Yes Plan: The patient reports no history of diabetes. I will check hemoglobin A1c. This is an unusually high response to steroid therapy in a nondiabetic patient. I have started a Humalog sliding scale for the time being. - Time Time Spent with patient: 15-24 minutes Medications reviewed and adjusted accordingly: Yes
[2018-10-19] MEDS: CARVEDILOL 12.5 MG TABLET PO SCH ×2 (09:06→21:30)
[2018-10-19] MEDS: INSULIN LISPRO 100 UNIT/ML 3 ML VIAL SUBCUT SCH ×4 (09:06→21:29)
[2018-10-19] MEDS: FAMOTIDINE 20 MG TABLET PO SCH ×2 (09:07→21:30)
[2018-10-19] MEDS: LISINOPRIL 10 MG TABLET PO SCH (09:07)
[2018-10-19] MEDS: FLUTICASONE/SALMETEROL DISKUS 500-50 MCG/DOSE IH SCH ×2 (09:11→21:33)
[2018-10-19] MEDS: RIVAROXABAN 10 MG TABLET PO SCH (16:48)
--- NOTE | 2018-10-19 20:56 | PDOC PROGRESS REPORT ---
Subjective Progress Note for:: 10/19/18 Subjective:: Patient is feeling better. Still on oxygen but ambulates to the bathroom without and is stable. Reason For Visit: LEFT LOWER LOBE PNEUMONIA, COPD EXACERBATION Physical Exam Vital Signs: Temp Pulse Resp BP Pulse Ox 97.6 F 86 20 133/75 H 100 10/19/18 20:05 10/19/18 20:05 10/19/18 20:05 10/19/18 20:05 10/19/18 20:05 Intake & Output 10/18/18 10/19/18 10/20/18 06:59 06:59 06:59 Intake Total 2546 1761 3193 Balance 2546 1761 3193 Weight 118.8 kg 120.4 kg General appearance: PRESENT: no acute distress, obese, well-developed Respiratory exam: PRESENT: symmetrical, unlabored. ABSENT: clear to auscultation kilo - Still with congested breath sounds, rales, rhonchi, wheezes Cardiovascular exam: PRESENT: RRR, +S1, +S2 GI/Abdominal exam: PRESENT: normal bowel sounds, soft. ABSENT: tenderness Neurological exam: PRESENT: alert, awake, oriented to person, oriented to place, oriented to time, oriented to situation, CN II-XII grossly intact Psychiatric exam: PRESENT: appropriate affect, normal mood. ABSENT: agitated, anxious Focused psych exam: ABSENT: delusional, restlessness Results Laboratory Results: 10/18/18 06:17 10/19/18 05:27 10/19/18 05:27 Sodium 138.1 Potassium 4.7 Chloride 100 Carbon Dioxide 31 H Anion Gap 7 BUN 24 H Creatinine 0.86 Est GFR ( Amer) > 60 Est GFR (Non-Af Amer) > 60 Glucose 206 H Calcium 8.9 Magnesium 2.6 H 10/17/18 05:00 NT-Pro-B Natriuret Pep 3450 H Impressions: Chest X-Ray 10/17/18 05:05 IMPRESSION: Interval worsening includes a moderate left lower retrocardiac consolidate. Assessment & Plan - Diagnosis (1) Left lower lobe pneumonia Qualifiers: Aspiration pneumonia type: unspecified Is this a current diagnosis for this admission?: Yes Plan: Continue current antibiotic therapy. Patient reports feeling improved. Co ntinue oxygen supplementation. Continue home inhaler regimen. There is a question of COPD but the patient performed spirometry as an outpatient while sick. We discussed following up with pulmonology as an outpatient for more appropriate testing. (2) Chronic a-fib Is this a current diagnosis for this admission?: Yes Plan: Continue carvedilol with anticoagulation. (3) Coronary artery disease Qualifiers: Coronary Disease-Associated Artery/Lesion type: [place] artery Is this a current diagnosis for this admission?: Yes Plan: Continue current regimen. The patient has a history of chronic congestive failure but he is asymptomatic at this time. (4) Hyperglycemia Is this a current diagnosis for this admission?: Yes Plan: The patient reports no history of diabetes. His hemoglobin A was 5.6. Hyperglycemia from steroids. (5) Class 1 obesity with body mass index (BMI) of 33.0 to 33.9 in adult Qualifiers: Serious obesity comorbidity presence: with serious comorbidity Is this a current diagnosis for this admission?: Yes Plan: Post discharge the patient should initiate diet and exercise plan. (6) Obstructive sleep apnea Is this a current diagnosis for this admission?: Yes Plan: The patient does have a CPAP machine. He does not use it. He states that every time he uses it he gets sick. We discussed care of the machine. This may also benefit with a truck assembler following the patient. - Time Time Spent with patient: 15-24 minutes Medications reviewed and adjusted accordingly: Yes Anticipated discharge: Home Within: within 48 hours
[2018-10-19] MEDS: CEFTRIAXONE 2 GM/D5W RTU 2 GM/50 ML RTUPB IV SCH (21:31)
[2018-10-20] MEDS: IPRATROPIUM/ALBUTEROL 0.5-2.5 MG/3 ML AMPUL NEB SCH ×4 (00:21→11:30)
[2018-10-20] MEDS: METHYLPREDNISOLONE INJ 125 MG/2 ML SDV IV SCH (05:20)
[2018-10-20] MEDS: AZITHROMYCIN 500 MG in DEXTROSE 5%-WATER 250 ML IV SCH (05:22)
[2018-10-20 06:22] LABS: HEMATOCRIT 37.2 % (37.9-51.0); HEMOGLOBIN 12.6 g/dL (13.5-17.0); MEAN CORPUSCULAR HEMOGLOBIN 30.6 pg (27.0-33.4); MEAN CORPUSCULAR HGB CONC 33.9 g/dL (32.0-36.0); MEAN CORPUSCULAR VOLUME 90 fl (80-97); PLATELET COUNT 282 10^3/uL (150-450); RED BLOOD COUNT 4.13 10^6/uL (4.35-5.55); WHITE BLOOD COUNT 17.3 10^3/uL (4.0-10.5)
[2018-10-20] MEDS: INSULIN LISPRO 100 UNIT/ML 3 ML VIAL SUBCUT SCH (08:55)
[2018-10-20] MEDS: FLUTICASONE/SALMETEROL DISKUS 500-50 MCG/DOSE IH SCH (09:35)
[2018-10-20] MEDS: FAMOTIDINE 20 MG TABLET PO SCH (09:35)
[2018-10-20] MEDS: LISINOPRIL 10 MG TABLET PO SCH (09:36)
[2018-10-20] MEDS: CARVEDILOL 12.5 MG TABLET PO SCH (09:36)
[2018-10-20 12:16] VITALS: BP 132/62
--- NOTE | 2018-10-20 21:35 | PDOC DISCHARGE SUMMARY ---
General - Admit/Disc Date/PCP Admission Date/Primary Care Provider: 10/17/18 06:23 TITO INFANTE MD Discharge Date: 10/20/18 - Discharge Diagnosis (1) Acute respiratory failure with hypoxia Is this a current diagnosis for this admission?: Yes Summary: Upon initial evaluation in the emergency department the patient's oxygen saturation on room air was 86%. He exhibited tachypnea and tachycardia and required supplemental oxygen therapy. He was placed on BiPAP. His treatment regimen included systemic steroids with bronchodilators in addition to the supplemental oxygen. During the hospitalization the patient showed continued improvement and was weaned from BiPAP and eventually down to room air. The respiratory failure is likely secondary to the pneumonia. The acute respiratory failure resolved with the above treatment regimen. (2) Left lower lobe pneumonia Is this a current diagnosis for this admission?: Yes Summary: Antibiotic therapy was utilized along with the nebulizer treatments and systemic steroids. The patient's white blood cell count did increase but this was due to the systemic steroids. By the time of discharge the patient was stable for outpatient oral antibiotics and no longer required oxygen. (3) Chronic a-fib Is this a current diagnosis for this admission?: Yes Summary: The patient has chronic atrial fibrillation. He has good rate control with carvedilol and remains anticoagulated. (4) Coronary artery disease Is this a current diagnosis for this admission?: Yes Summary: The patient has a history of coronary artery disease. He did not exhibit any acute coronary symptoms during his admission. His medication regimen remained unchanged. (5) Hyperglycemia Is this a current diagnosis for this admission?: Yes Summary: The patient was placed on sliding scale insulin. His hemoglobin A1c was normal at 6.3 and the hyperglycemia was secondary to the steroid therapy. This will resolve with his prednisone taper. (6) Class 1 obesity with body mass index (BMI) of 33.0 to 33.9 in adult Is this a current diagnosis for this admission?: Yes Summary: The obesity contributes to his obstructive sleep apnea as well as is a risk factor for his cardiac disease. Weight loss and exercise are recommended. (7) Obstructive sleep apnea Is this a current diagnosis for this admission?: Yes Summary: The patient does have a CPAP machine at home. Unfortunately he does not use it consistently. He reports that every time he uses the machine he tends to get sick within a week or 2. We discussed maintenance of the machine with regular cleaning. We also discussed insurance coverage for replacement tubing and mask as well as reservoir regularly. If the machine is old enough the patient might also be able to obtain a new CPAP machine. He will follow-up with his primary care provider to initiate any of these changes. I did encourage him to be aggressive with this as continued use of his CPAP would contribute to him feeling better. - Additional Information Resuscitation Status: Full Code Discharge Diet: Cardiac Discharge Activity: Activity As Tolerated, Balance Activity w/Rest Prescriptions: Azithromycin [Zithromax 250 mg Tablet] 250 mg PO DAILY 5 Days #5 tablet Cefuroxime Axetil [Ceftin 500 mg Tablet] 1 tab PO BID 7 Days #14 tablet Fluticasone/Salmeterol [Advair 500-50 Diskus 14 Dose/Diskus] 1 inh IH Q12 30 Days #1 inhaler Ipratropium/Albuterol Sulfate [Duoneb 3 ml Ampul] 3 ml NEB Q6HP PRN 30 Days #120 vial.neb PRN Reason: Prednisone [Deltasone 10 mg Tablet] 10 mg PO ASDIR PRN 26 Days #56 tablet PRN Reason: Home Medications: Aspirin [Adult Low Dose Aspirin EC] 81 mg PO DAILY 10/17/18 Carvedilol [Coreg 25 mg Tablet] 25 mg PO Q12 10/17/18 Docusate Sodium [Stool Softener] 100 mg PO DAILY 10/17/18 Lisinopril [Zestril] 10 mg PO QAM 10/17/18 Multivit-Min/FA/Lycopen/Lutein [Centrum Silver Men Tablet] 1 tab PO DAILY 10/17/18 Psyllium Husk [Daily Fiber] 0.52 gm PO DAILY 10/17/18 Rivaroxaban [Xarelto] 20 mg PO QPM 10/17/18 Simvastatin [Zocor 20 mg Tablet] 20 mg PO QAM 10/17/18 Azithromycin [Zithromax 250 mg Tablet] 250 mg PO DAILY 5 Days #5 tablet 10/20/18 Cefuroxime Axetil [Ceftin 500 mg Tablet] 1 tab PO BID 7 Days #14 tablet 10/20/18 Fluticasone/Salmeterol [Advair 500-50 Diskus 14 Dose/Diskus] 1 inh IH Q12 30 Days #1 inhaler 10/20/18 Ipratropium/Albuterol Sulfate [Duoneb 3 ml Ampul] 3 ml NEB Q6HP PRN 30 Days #120 vial.neb 10/20/18 Lisinopril [Prinivil 10 mg Tablet] 10 mg PO DAILY tablet 10/20/18 Prednisone [Deltasone 10 mg Tablet] 10 mg PO ASDIR PRN 26 Days #56 tablet 10/20/18 History of Present Illness Patient complains of: Shortness of breath History of Present Illness: RIKKI LAMBERT is a 68 year old male with multiple comorbidities. The patient was seen several times for upper respiratory infection with shortness of breath. Eventually he presented to the emergency department. Outpatient treatment was attempted but the patient returned and required admission to the hospital based on worsening respiratory status. The patient required supplemental oxygen with BiPAP. Antibiotics and steroids as well as nebulizer therapy were initiated and the patient was referred to the hospitalist service for admission Hospital Course Hospital Course: The patient had a rather uncomplicated hospital course. With the aggressive t herapy he was successfully able to wean from the BiPAP and eventually weaned to room air. He received antibiotic therapy for his left lower lobe pneumonia seen on x-ray. His steroids were slowly tapered. He will complete the taper as an outpatient. He will complete antibiotic therapy as an outpatient. His cardiac medications remained unchanged. Physical Exam Vital Signs: Temp Pulse Resp BP Pulse Ox 97.8 F 95 14 103/55 L 95 10/20/18 11:38 10/20/18 11:38 10/20/18 11:38 10/20/18 11:38 10/20/18 11:38 Intake & Output 10/19/18 10/20/18 10/21/18 06:59 06:59 06:59 Intake Total 1761 3993 Balance 1761 3993 Weight 120.4 kg 122 kg General appearance: PRESENT: no acute distress, obese, well-developed Head exam: PRESENT: normocephalic Mouth exam: PRESENT: moist Respiratory exam: PRESENT: clear to auscultation kilo, symmetrical, unlabored. ABSENT: rales, rhonchi, wheezes Cardiovascular exam: PRESENT: irregular rhythm GI/Abdominal exam: PRESENT: normal bowel sounds, soft. ABSENT: tenderness Extremities exam: ABSENT: pedal edema Neurological exam: PRESENT: alert, awake, oriented to person, oriented to place, oriented to time, oriented to situation, CN II-XII grossly intact Psychiatric exam: PRESENT: appropriate affect, normal mood. ABSENT: agitated, anxious Results Laboratory Results: 10/20/18 05:44 10/19/18 05:27 10/20/18 05:44 WBC 17.3 H RBC 4.13 L Hgb 12.6 L Hct 37.2 L MCV 90 MCH 30.6 MCHC 33.9 RDW 14.0 Plt Count 282 10/17/18 05:00 NT-Pro-B Natriuret Pep 3450 H Impressions: Chest X-Ray 10/17/18 05:05 IMPRESSION: Interval worsening includes a moderate left lower retrocardiac consolidate. Qualifiers - * PATIENT BEING DISCHARGED WITH ANY OF THE FOLLOWING DIAGNOSIS: No Plan Discharge Plan: As above. He will establish with a new primary care or return to his former primary care physician. I suggested he follow-up with pulmonology as well. He will need appropriate pulmonary function testing when he is back to baseline and the adventure education teacher can help with his obstructive sleep apnea. Time Spent: Greater than 30 Minutes
== END 2018-10-20 13:09 | disposition home or self-care (01) | DRG 193 ==
LOC: ER 04:48 → EH 06:23 → 3S 08:35
PROVIDERS: ADMIT Internal Medicine; ATTEND Internal Medicine
PROC: 5A09457 Assistance with Respiratory Ventilation, 24-96 Consecutive Hours, Continuous Positive Airway Pressure (ICD-10-PCS; principal; 2018-10-17)
PROC: 3E0F73Z Introduction of Anti-inflammatory into Respiratory Tract, Via Natural or Artificial Opening (ICD-10-PCS; 2018-10-17)
DX: J18.1 Lobar pneumonia, unspecified organism (principal); J96.01 Acute respiratory failure with hypoxia; J44.1 Chronic obstructive pulmonary disease with (acute) exacerbation; I50.22 Chronic systolic (congestive) heart failure; J44.0 Chronic obstructive pulmonary disease with (acute) lower respiratory infection; I48.2 Chronic atrial fibrillation; I25.10 Atherosclerotic heart disease of native coronary artery without angina pectoris; R73.9 Hyperglycemia, unspecified; T38.0X5A Adverse effect of glucocorticoids and synthetic analogues, initial encounter; Y92.9 Unspecified place or not applicable; G47.33 Obstructive sleep apnea (adult) (pediatric); I11.0 Hypertensive heart disease with heart failure; E66.9 Obesity, unspecified; E78.00 Pure hypercholesterolemia, unspecified; E78.5 Hyperlipidemia, unspecified; Z68.33 Body mass index [BMI] 33.0-33.9, adult; Z79.899 Other long term (current) drug therapy; Z95.810 Presence of automatic (implantable) cardiac defibrillator; I25.2 Old myocardial infarction; Z95.5 Presence of coronary angioplasty implant and graft; Z87.891 Personal history of nicotine dependence
CPT/HCPCS: 36415; 36600; 71045; 71046; 80048; 80053; 82803; 82962; 83036; 83605; 83735; 83880; 85025; 85027; 87040; 87804; 93005; 93010; 94640; 94660; 96365; 96375; 99291; J0456; J0696; J1650; J1815; J1940; J2930; J3475; J3490; J7060; J7620

== ENCOUNTER 2019-01-07 16:25 | Emergency (ER) | payer MEDICARE, MEDICAID ==
--- NOTE | 2019-01-07 16:59 | ER Document Report ---
Addendum entered and electronically signed by AMELIA FARRIS NP 01/07/19 17:00: ED Medical Screen (RME) - General Chief Complaint: Chest Pain Stated Complaint: DIZZINESS Time Seen by Provider: 01/07/19 16:51 Primary Care Provider: TITO INFANTE MD [Primary Care Provider] - Follow up as needed Mode of Arrival: Wheelchair Notes: Patient also reports he took 1 sublingual nitro which helped with his symptoms prior to arrival. TRAVEL OUTSIDE OF THE [place] IN LAST 30 DAYS: No - Related Data Allergies/Adverse Reactions: No Known Allergies Allergy (Verified 01/07/19 16:26) Original Note: ED Medical Screen (RME) - General Chief Complaint: Chest Pain Stated Complaint: DIZZINESS Time Seen by Provider: 01/07/19 16:51 Primary Care Provider: TITO INFANTE MD [Primary Care Provider] - Follow up as needed Mode of Arrival: Wheelchair Information source: Patient Notes: Patient is a 68-year-old male who presents to the emergency department with onset of chest pressure just prior to arrival. He reports associated dizziness, shortness of breath, diaphoresis and lightheadedness. He states the chest pressure was across the center of his chest into his right and left-sided chest. He denies any radiation into his neck, jaw or arms. He reports that he has a pacer/defibrillator and has a past medical history of COPD. Patient denies any history of CHF. Patient currently reports that the pain has eased off to a 1/5. Exam: Heart sounds S1-S2 present with no ectopy noted. Lungs are clear and equal bilaterally. Skin warm and dry. I have greeted and performed a rapid initial assessment of this patient. A comprehensive ED assessment and evaluation of the patient, analysis of test results and completion of the medical decision making process will be conducted by additional ED providers. Dictation of this chart was performed using voice recognition software; therefore, there may be some unintended grammatical errors. TRAVEL OUTSIDE OF THE [place] IN LAST 30 DAYS: No - Related Data Allergies/Adverse Reactions: No Known Allergies Allergy (Verified 01/07/19 16:26) Past Medical History - Past Medical History Cardiac Medical History: Reports: Hx Congestive Heart Failure, Hx Heart Attack - x2, Hx Hypercholesterolemia, Hx Hypertension Pulmonary Medical History: Reports: Hx Asthma, Hx Bronchitis, Hx COPD Renal/ Medical History: Denies: Hx Peritoneal Dialysis Musculoskeltal Medical History: Reports Hx Arthritis, Reports Hx Musculoskeletal Deformity, Reports Hx Musculoskeletal Trauma Traumatic Medical History: Reports: Hx Fractures - Foot Past Surgical History: Reports: Hx Abdominal Surgery - 2 hernias, Hx Cardiac Catheterization - 2stents, Hx Cardiac Surgery - pacer/defib, Hx Orthopedic Surgery - 2 back sx - Immunizations Immunizations up to date: Yes Hx Diphtheria, Pertussis, Tetanus Vaccination: Yes - 08-16-12 Physical Exam - Vital signs Vitals: Temp Pulse Resp BP Pulse Ox 99.1 F 80 18 125/69 95 01/07/19 16:48 01/07/19 16:48 01/07/19 16:48 01/07/19 16:48 01/07/19 16:48 Course - Vital Signs Vital signs: Temp Pulse Resp BP Pulse Ox 99.1 F 80 18 125/69 95 01/07/19 16:48 01/07/19 16:48 01/07/19 16:48 01/07/19 16:48 01/07/19 16:48 Doctor's Discharge - Discharge Referrals: TITO INFANTE MD [Primary Care Provider] - Follow up as needed
[2019-01-07 17:32] LABS: ABSOLUTE BASOPHILS # (AUTO) 0.1 10^3/uL (0.0-0.2); ABSOLUTE EOSINOPHILS # (AUTO) 0.2 10^3/uL (0.0-0.6); ABSOLUTE LYMPHOCYTES (AUTO) 2.3 10^3/uL (0.5-4.7); ABSOLUTE MONOCYTES (AUTO) 0.8 10^3/uL (0.1-1.4); ABSOLUTE NEUT (AUTO) 4.8 10^3/uL (1.7-8.2); BASOPHILS % (AUTO) 0.7 % (0-2); HEMATOCRIT 39.6 % (37.9-51.0); HEMOGLOBIN 13.4 g/dL (13.5-17.0); MEAN CORPUSCULAR HEMOGLOBIN 30.5 pg (27.0-33.4); MEAN CORPUSCULAR HGB CONC 33.7 g/dL (32.0-36.0); MEAN CORPUSCULAR VOLUME 90 fl (80-97); MONOCYTES % (AUTO) 9.9 % (3-13); PLATELET COUNT 210 10^3/uL (150-450); RED BLOOD COUNT 4.38 10^6/uL (4.35-5.55); RED CELL DISTRIBUTION WIDTH 14.7 % (11.5-14.0); SEGMENTED NEUTROPHILS % (AUTO) 58.4 % (42-78); TOTAL CELLS COUNTED % (AUTO) 100 %; WHITE BLOOD COUNT 8.2 10^3/uL (4.0-10.5)
--- NOTE | 2019-01-07 17:32 | RADIOLOGY REPORT (SQ) ---
EXAM DESCRIPTION: CHEST SINGLE VIEW COMPLETED DATE/TIME: 01/07/2019 5:19 pm REASON FOR STUDY: chest pain, shortness of breath COMPARISON: Chest films 10/17/2018, 10/15/2018, 03/06/2011 EXAM PARAMETERS: NUMBER OF VIEWS: One view. TECHNIQUE: Single frontal radiographic view of the chest acquired. RADIATION DOSE: NA LIMITATIONS: None. FINDINGS: LUNGS AND PLEURA: No opacities, masses or pneumothorax. No pleural effusion. MEDIASTINUM AND HILAR STRUCTURES: No masses. Contour normal. HEART AND VASCULAR STRUCTURES: Stable mild cardiomegaly BONES: No acute findings. HARDWARE: Left-sided pacemaker/defibrillator OTHER: No other significant finding. IMPRESSION: NO ACUTE RADIOGRAPHIC FINDING IN THE CHEST. TECHNICAL DOCUMENTATION: JOB ID: [id number] [employer]- All Rights Reserved Reading location - IP/workstation name: [email or web address]
[2019-01-07 17:49] LABS: ALANINE AMINOTRANSFERASE 42 U/L (21-72); ALBUMIN 3.9 g/dL (3.5-5.0); ALKALINE PHOSPHATASE 48 U/L (38-126); ANION GAP 10 (5-19); ASPARTATE AMINO TRANSFERASE 24 U/L (17-59); BILIRUBIN,DIRECT 0.2 mg/dL (0.0-0.4); BILIRUBIN,TOTAL 0.5 mg/dL (0.2-1.3); BLOOD UREA NITROGEN 15 mg/dL (7-20); CALCIUM 9.2 mg/dL (8.4-10.2); CARBON DIOXIDE 29 mmol/L (22-30); CHLORIDE 102 mmol/L (98-107); CREATINE KINASE 92 U/L (55-170); GLUCOSE 117 mg/dL (75-110); POTASSIUM 4.1 mmol/L (3.6-5.0); SODIUM 140.6 mmol/L (137-145); TOTAL PROTEIN 6.8 g/dL (6.3-8.2)
[2019-01-07 17:59] LABS: CREATINE KINASE MB 0.56 ng/mL (<4.55)
[2019-01-07 18:00] LABS: TROPONIN I < 0.012 ng/mL
[2019-01-07 20:27] VITALS: BP 126/78
--- NOTE | 2019-01-07 20:45 | ER Document Report ---
ED General - General Chief Complaint: Chest Pain Stated Complaint: DIZZINESS Time Seen by Provider: 01/07/19 16:51 Primary Care Provider: TITO INFANTE MD [Primary Care Provider] - Follow up as needed Mode of Arrival: Wheelchair TRAVEL OUTSIDE OF THE [place] IN LAST 30 DAYS: No - HPI Notes: Patient presents emergency department for evaluation of chest pain, dizziness. He states he was walking, developed centralized chest pain without radiation. He could not really describe it for me. He states he felt slightly dizzy with this as well. He states he felt slightly short of breath, but states he has felt short of breath since [place] changed his COPD medications recently. He states he sat down, took a sublingual nitroglycerin from a friend. His pain resolved. He has had no recurrence of his chest pain since then. He had a recent stress test, and the last 6 months, which she states was negative. He actually has an appointment with his enterprise systems administrator on Wednesday. He has been taking his medications as prescribed. - Related Data Allergies/Adverse Reactions: No Known Allergies Allergy (Verified 01/07/19 16:26) Past Medical History - General Information source: Patient - Social History Smoking Status: Former Smoker Chew tobacco use (# tins/day): No Frequency of alcohol use: None Drug Abuse: None Family History: Reviewed & Not Pertinent Patient has suicidal ideation: No Patient has homicidal ideation: No - Past Medical History Cardiac Medical History: Reports: Hx Congestive Heart Failure, Hx Coronary Artery Disease, Hx Heart Attack - x2, Hx Hypercholesterolemia, Hx Hypertension Pulmonary Medical History: Reports: Hx Asthma, Hx Bronchitis, Hx COPD Renal/ Medical History: Denies: Hx Peritoneal Dialysis Musculoskeletal Medical History: Reports Hx Arthritis, Reports Hx Musculoskeletal Deformity, Reports Hx Musculoskeletal Trauma Traumatic Medical History: Reports: Hx Fractures - Foot Past Surgical History: Reports: Hx Abdominal Surgery - 2 hernias, Hx Cardiac Catheterization - 2stents, Hx Cardiac Surgery - pacer/defib, Hx Orthopedic Surgery - 2 back sx - Immunizations Immunizations up to date: Yes Hx Diphtheria, Pertussis, Tetanus Vaccination: Yes - 08-16-12 Hx Pneumococcal Vaccination: 07/30/18 Review of Systems - Review of Systems Constitutional: No symptoms reported EENT: No symptoms reported Cardiovascular: See HPI Respiratory: See HPI Gastrointestinal: No symptoms reported Genitourinary: No symptoms reported Musculoskeletal: No symptoms reported Skin: No symptoms reported Neurological/Psychological: No symptoms reported Physical Exam - Vital signs Vitals: Temp Pulse Resp BP Pulse Ox 99.1 F 80 18 125/69 95 01/07/19 16:48 01/07/19 16:48 01/07/19 16:48 01/07/19 16:48 01/07/19 16:48 - Notes Notes: Vital signs reviewed, please refer to chart. Head is normocephalic, atraumatic. Pupils equal round, reactive to light. Neck is supple without meningismus. Heart is regular rate and rhythm. Lungs reveal mildly diminished breath sounds without wheezes, rales, rhonchi. Abdomen is soft, nontender, normoactive bowel sounds throughout. Extremities without cyanosis, clubbing. Posterior calves are nontender. Peripheral pulses are equal. Skin is warm and dry. Patient is awake, alert, neurological exam is nonfocal. Course - Re-evaluation Re-evalutation: 01/07/19 20:43 Patient presented to the emergency department for evaluation of chest pain and dizziness. He had no chest pain while here. His EKG is unchanged. His pacer is working appropriately. He was chest pain-free after 1 subungual nitroglycerin. He is remained stable. He had a normal stress test within the last 6 months. He already has an appointment with his enterprise systems administrator on Wednesday. Delta troponin was completely negative as well. At this point I do believe the patient is stable to go home. He understands that if he has any recurrence of his chest pain he needs to return immediately to the emergency department for reevaluation. He voiced understanding to this and was discharged. - Vital Signs Vital signs: Temp Pulse Resp BP Pulse Ox 99.1 F 80 21 H 126/78 H 94 01/07/19 16:48 01/07/19 16:48 01/07/19 20:01 01/07/19 20:01 01/07/19 20:01 - Laboratory Result Diagrams: 01/07/19 17:11 01/07/19 17:11 Laboratory results interpreted by me: 01/07/19 01/07/19 17:11 17:11 Hgb 13.4 L RDW 14.7 H Glucose 117 H - Diagnostic Test Radiology reviewed: Reports reviewed Radiology results interpreted by me: 05/11/19 20:42 Chest X-Ray 01/07/19 16:59 IMPRESSION: NO ACUTE RADIOGRAPHIC FINDING IN THE CHEST. - EKG Interpretation by Me Additional EKG results interpreted by me: 01/07/19 20:42 Ventricular pacing at 86 bpm, no significant change from prior study of 10/17/2018 Discharge - Discharge Clinical Impression: Chest pain Qualifiers: Ischemic chest pain type: stable angina pectoris Condition: Stable Disposition: HOME, SELF-CARE Instructions: Chest Pain of Unclear Cause ([facility]) Additional Instructions: Continue your home medications as prescribed. Follow-up with your enterprise systems administrator as scheduled this week. If your chest pain returns, you develop dizziness, difficulty breathing, or any other new or concerning symptoms, you need to return immediately to the emergency department for reevaluation. Referrals: TITO INFANTE MD [Primary Care Provider] - Follow up as needed
--- NOTE | 2019-01-07 23:27 | EKG REPORT ---
SEVERITY:- ABNORMAL ECG - VENTRICULAR-PACED RHYTHM : Confirmed by: Jacqueline Knox MD 07-Jan-2019 23:26:30
== END 2019-01-07 21:22 | disposition home or self-care (01) ==
LOC: ER 16:25
DX: I20.9 Angina pectoris, unspecified (principal); R42 Dizziness and giddiness; R06.02 Shortness of breath; Z87.891 Personal history of nicotine dependence; I50.9 Heart failure, unspecified; I25.10 Atherosclerotic heart disease of native coronary artery without angina pectoris; I11.0 Hypertensive heart disease with heart failure; J44.9 Chronic obstructive pulmonary disease, unspecified
CPT/HCPCS: 36415; 71045; 80053; 82550; 82553; 84484; 85025; 93005; 93010; 99285

== ENCOUNTER 2019-08-28 22:33 | Emergency (ER) | payer MEDICARE, MEDICAID ==
[2019-08-29] MEDS ORDERED: ACETAMINOPHEN 325 MG TABLET PO ONE (00:19)
--- NOTE | 2019-08-29 00:24 | ER Document Report ---
ED Medical Screen (RME) - General Chief Complaint: Flu Symptoms Stated Complaint: FLU-LIKE SYMPTOMS Time Seen by Provider: 08/29/19 00:18 Primary Care Provider: TITO INFANTE MD [Primary Care Provider] - Follow up as needed Mode of Arrival: Ambulatory Information source: Patient Notes: 69-year-old male patient with history of COPD, CAD presenting with cough, congestion, body aches and fever. Patient reports symptoms started 2 days ago. He reports he feels similar to when he had pneumonia a year ago. Patient reports increased work of breathing. Exam: Patient febrile. Heart sounds S1-S2 present, tachycardia noted. Lung sounds clear and equal bilaterally, no wheezes. Mildly increased work of breathing. I have greeted and performed a rapid initial assessment of this patient. A comprehensive ED assessment and evaluation of the patient, analysis of test results and completion of the medical decision making process will be conducted by additional ED providers. I have specifically instructed the patient or family members with the patient to immediately return to any nursing staff should anything change in the patient's condition or with their chief complaint. TRAVEL OUTSIDE OF THE [place] IN LAST 30 DAYS: No - Related Data Allergies/Adverse Reactions: No Known Allergies Allergy (Verified 08/29/19 00:18) Home Medications: cardizem/ lisinopri/simvastatin/ xerelto/asa/ allergy med/ cpap/xopenix/ breo Past Medical History - Social History Chew tobacco use (# tins/day): No Frequency of alcohol use: None Drug Abuse: None - Past Medical History Cardiac Medical History: Reports: Hx Congestive Heart Failure, Hx Coronary Artery Disease, Hx Heart Attack - x2, Hx Hypercholesterolemia, Hx Hypertension Pulmonary Medical History: Reports: Hx Asthma, Hx Bronchitis, Hx COPD Renal/ Medical History: Denies: Hx Peritoneal Dialysis Musculoskeltal Medical History: Reports Hx Arthritis, Reports Hx Musculoskeletal Deformity, Reports Hx Musculoskeletal Trauma Traumatic Medical History: Reports: Hx Fractures - Foot Past Surgical History: Reports: Hx Abdominal Surgery - 2 hernias, Hx Cardiac Catheterization - 2stents, Hx Cardiac Surgery - pacer/defib, Hx Orthopedic Surgery - 2 back sx - Immunizations Immunizations up to date: Yes Hx Diphtheria, Pertussis, Tetanus Vaccination: Yes - 08-16-12 Physical Exam - Vital signs Vitals: Temp Pulse BP Pulse Ox 102.7 F H 107 H 133/76 H 92 12/30/19 22:45 08/28/19 22:45 08/28/19 22:45 08/28/19 22:45 Course - Vital Signs Vital signs: Temp Pulse Resp BP Pulse Ox 102.7 F H 107 H 133/76 H 92 08/28/19 22:45 08/28/19 22:45 08/28/19 22:45 08/28/19 22:45 Doctor's Discharge - Discharge Referrals: TITO INFANTE MD [Primary Care Provider] - Follow up as needed
[2019-08-29 00:51] LABS: ABSOLUTE MONOCYTES (AUTO) 1.3 10^3/uL (0.1-1.4); ABSOLUTE NEUT (AUTO) 6.1 10^3/uL (1.7-8.2); BASOPHILS % (AUTO) 0.3 % (0-2); EOSINOPHILS % (AUTO) 0.4 % (0-6); HEMATOCRIT 41.1 % (37.9-51.0); HEMOGLOBIN 14.1 g/dL (13.5-17.0); LYMPHOCYTES % (AUTO) 11.8 % (13-45); MEAN CORPUSCULAR HEMOGLOBIN 31.1 pg (27.0-33.4); MEAN CORPUSCULAR HGB CONC 34.3 g/dL (32.0-36.0); MEAN CORPUSCULAR VOLUME 91 fl (80-97); MONOCYTES % (AUTO) 15.3 % (3-13); PLATELET COUNT 202 10^3/uL (150-450); RED BLOOD COUNT 4.54 10^6/uL (4.35-5.55); RED CELL DISTRIBUTION WIDTH 14.5 % (11.5-14.0); SEGMENTED NEUTROPHILS % (AUTO) 72.2 % (42-78); TOTAL CELLS COUNTED % (AUTO) 100 %; WHITE BLOOD COUNT 8.5 10^3/uL (4.0-10.5)
[2019-08-29 01:08] LABS: A TYPE INFLUENZA AG NEGATIVE (NEGATIVE); B INFLUENZA AG NEGATIVE (NEGATIVE)
[2019-08-29 01:11] LABS: ALBUMIN 4.3 g/dL (3.5-5.0); ALKALINE PHOSPHATASE 56 U/L (38-126); ANION GAP 10 (5-19); ASPARTATE AMINO TRANSFERASE 31 U/L (17-59); BILIRUBIN,DIRECT 0.2 mg/dL (0.0-0.4); BILIRUBIN,TOTAL 1.1 mg/dL (0.2-1.3); BLOOD UREA NITROGEN 13 mg/dL (7-20); CALCIUM 9.1 mg/dL (8.4-10.2); CARBON DIOXIDE 29 mmol/L (22-30); CHLORIDE 98 mmol/L (98-107); GLUCOSE 137 mg/dL (75-110); POTASSIUM 4.9 mmol/L (3.6-5.0); TOTAL PROTEIN 7.5 g/dL (6.3-8.2)
--- NOTE | 2019-08-29 01:18 | RADIOLOGY REPORT (SQ) ---
XR CHEST 2 VIEWS EXAM DATE: 08/29/2019 12:22 AM DIGITAL PRESS OPERATOR HISTORY: Cough/fever. COMPARISON: 01/07/2019 FINDINGS: Normal heart size without pulmonary edema. The lungs are clear. No pleural effusions or pneumothorax. No acute bony findings are seen. There is multilead left chest wall pacemaker. IMPRESSION: No evidence of acute cardiopulmonary disease.
--- NOTE | 2019-08-29 04:34 | ER Document Report ---
ED General - General Chief Complaint: Flu Symptoms Stated Complaint: FLU-LIKE SYMPTOMS Time Seen by Provider: 08/29/19 00:18 Primary Care Provider: TITO INFANTE MD [Primary Care Provider] - Follow up as needed Mode of Arrival: Ambulatory TRAVEL OUTSIDE OF THE [place] IN LAST 30 DAYS: No - Related Data Allergies/Adverse Reactions: No Known Allergies Allergy (Verified 08/29/19 00:18) Home Medications: cardizem/ lisinopri/simvastatin/ xerelto/asa/ allergy med/ cpap/xopenix/ breo Past Medical History - General Information source: Patient - Social History Smoking Status: Former Smoker Chew tobacco use (# tins/day): No Frequency of alcohol use: None Drug Abuse: None Family History: Reviewed & Not Pertinent Patient has suicidal ideation: No Patient has homicidal ideation: No - Past Medical History Cardiac Medical History: Reports: Hx Congestive Heart Failure, Hx Coronary Artery Disease, Hx Heart Attack - x2, Hx Hypercholesterolemia, Hx Hypertension Pulmonary Medical History: Reports: Hx Asthma, Hx Bronchitis, Hx COPD Renal/ Medical History: Denies: Hx Peritoneal Dialysis Musculoskeletal Medical History: Reports Hx Arthritis, 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, Reports Hx Musculoskeletal Trauma Traumatic Medical History: Reports: Hx Fractures - Foot Past Surgical History: Reports: Hx Abdominal Surgery - 2 hernias, Hx Cardiac Catheterization - 2stents, Hx Cardiac Surgery - pacer/defib, Hx Orthopedic Surgery - 2 back sx - Immunizations Immunizations up to date: Yes Hx Diphtheria, Pertussis, Tetanus Vaccination: Yes - 08-16-12 Hx Pneumococcal Vaccination: 07/30/18 Physical Exam - Vital signs Vitals: Temp Pulse BP Pulse Ox 102.7 F H 107 H 133/76 H 92 08/28/19 22:45 08/28/19 22:45 08/28/19 22:45 08/28/19 22:45 - Notes Notes: Patient presents emergency department complaining of fever cough and congestion for the past 3 days. Been associate with some generalized myalgias also. Any headache sore throat or runny nose. There is been no chest pain shortness of breath nausea vomiting or abdominal pain no rashes. Appetite is been decreased but he has been drinking fluids. Has been using an aerosol machine to 3 times a day with some relief of the congestion Past medical history significant atrial fibrillation CHF coronary artery disease and COPD. Social history does not smoke or drink at all Review of systems pertinent positives and negatives in HPI otherwise all the systems were reviewed and acutely negative PHYSICIAN EXAM -vital signs are noted triage note and note from triage reviewed pulse ox done by me with continuous waveform was running 94% GENERAL: Well-appearing, well-nourished and in _no acute distress HEAD: Atraumatic, normocephalic. EYES: Pupils equal round and reactive to light, extraocular movements intact, sclera anicteric, conjunctiva are normal. ENT: nares patent, oropharynx clear without exudates. Moist mucous membranes. NECK: supple without lymphadenopathy LUNGS: Breath sounds clear to auscultation bilaterally and equal. No respiratory distress rare wheeze on forced exhalation HEART: Regular rate and rhythm without murmurs ABDOMEN: Soft, nontender, normoactive bowel sounds. EXTREMITIES: No deformity, no edema. No palpable cords NEUROLOGICAL: No focal neurological deficits. Moves all extremities spontaneously and on command. PSYCH: Normal mood, normal affect. SKIN: Warm, Dry, normal turgor, no rashes or lesions noted. BACK-nontender in the midline Differential diagnosis pneumonia bronchitis calf congestive heart failure Course - Re-evaluation Re-evalutation: 08/29/19 04:36 ED patient is remained stable he was given a dose of prednisone and doxycycline Medical decision making patient presents with exacerbation of his COPD he looks well he has no active pneumonia his sats are good I see no indication for medical admission. He will be treated with steroids and antibiotics. The frequency of his aerosol Please review the discharge instructions, they will tell you about your disease/injury and what you need to return to the ED for Return to the ED if you feel worse or can follow-up with your family doctor - Vital Signs Vital signs: Temp Pulse Resp BP Pulse Ox 99.3 F 81 24 H 107/56 L 94 08/29/19 02:13 08/29/19 02:13 08/29/19 02:13 08/29/19 02:13 08/29/19 02:13 - Laboratory Result Diagrams: 08/29/19 00:30 08/29/19 00:30 Laboratory results interpreted by me: 08/29/19 08/29/19 00:30 00:30 RDW 14.5 H Lymph % (Auto) 11.8 L [place] % (Auto) 15.3 H Sodium 136.9 L Glucose 137 H - Diagnostic Test Radiology reviewed: Reports reviewed Discharge - Discharge Clinical Impression: COPD with exacerbation Condition: Good Disposition: HOME, SELF-CARE Additional Instructions: Bronchitis You have acute bronchitis. This disease is an infection or inflammation of the air passageways in your lungs. Symptoms usually include cough, low grade fever, shortness of breath, and wheezing. The cough usually persists for a couple of weeks. Most cases of bronchitis get better without antibiotics. We prescribe antibiotics when we believe bacteria are damaging your airways, or if there's high risk the bronchitis will worsen into pneumonia. Increase your fluid intake. A cool mist humidifier may make your lungs more comfortable. An expectorant (cough medicine that loosens phlegm) can help. If you smoke, STOP!!! Recovery from bronchitis can be somewhat slow, but you should see improvement within a day or two. Repeated episodes of bronchitis may result in lung damage -- for example, chronic bronchitis, recurrent pneumonias, or emphysema. Call the doctor if you develop increasing fever, shortness of breath, chest pain, bloody sputum, or otherwise worsen. If you have not improved at all after several days, contact the physician. Please review the discharge instructions, they will tell you about your disease/injury and what you need to return to the ED for Return to the ED if you feel worse or can follow-up with your family doctor Use your aerosol machine 4 times a day for the next 3 to 5 days then as needed You can take Tylenol for fever Drink plenty of fluids Follow-up with your family doctor in 2 to 3 days otherwise in 2 weeks Your sugar was elevated today and will need to be rechecked again in 2 weeks Prescriptions: Prednisone [Deltasone] 20 mg PO TID #15 tablet Doxycycline Hyclate 100 mg PO BID #14 capsule Benzonatate [Tessalon Perles 100 mg Capsule] 200 mg PO ASDIR PRN #20 capsule PRN Reason: Referrals: TITO INFANTE MD [Primary Care Provider] - Follow up as needed
[2019-08-29] MEDS ORDERED: PREDNISONE 20 MG TABLET PO ONE (04:35)
[2019-08-29] MEDS ORDERED: DOXYCYCLINE HYCLATE 100 MG TABLET PO ONE (04:35)
[2019-08-29 05:12] VITALS: BP 112/60
== END 2019-08-29 05:12 | disposition home or self-care (01) ==
LOC: ER 22:33
DX: J44.1 Chronic obstructive pulmonary disease with (acute) exacerbation (principal); R50.9 Fever, unspecified; R05 Cough; M79.10 Myalgia, unspecified site; I25.10 Atherosclerotic heart disease of native coronary artery without angina pectoris; I25.2 Old myocardial infarction; I10 Essential (primary) hypertension; E78.00 Pure hypercholesterolemia, unspecified; I48.91 Unspecified atrial fibrillation; Z79.01 Long term (current) use of anticoagulants; Z79.899 Other long term (current) drug therapy; Z79.82 Long term (current) use of aspirin; Z79.51 Long term (current) use of inhaled steroids; Z87.891 Personal history of nicotine dependence
CPT/HCPCS: 99283; 36415; 87040; 83605; 85025; 80053; 87804; 71046; A9270 ×3; J7512

== ENCOUNTER 2020-08-14 13:14 | Emergency (ER) | payer MEDICARE, MEDICAID ==
--- NOTE | 2020-08-14 13:56 | ER Document Report ---
ED General - General Chief Complaint: Near Syncope Stated Complaint: NEAR SYNCOPY,WEAKNESS Time Seen by Provider: 08/14/20 13:52 Primary Care Provider: [facility] [Provider Group] - Follow up as needed Notes: HPI: 70-year-old male who presents today feeling a little lightheaded and appearing pale according to his . Patient denies any chest pain, palpitations, abdominal pain, fever, weakness or numbness. Patient was admitted here for acute blood loss anemia around 1 week ago. He had an endoscopy and a colonoscopy. No active bleeding was found. Grade 3 hemorrhoids were found. He did follow-up with a gut dropper who provided some foam for the hemorrhoids. Patient is on Xarelto with a decrease in the dosage on last admission. Patient does have an artificial heart valve. ROS: See HPI All other review of systems reviewed and otherwise negative Reviewed vital signs and nursing note as charted by RN. PHYSICAL EXAM: CONSTITUTIONAL: Alert and oriented and responds appropriately to questions. Well-appearing; well-nourished HEAD: Normocephalic; atraumatic EYES: Sclerae slightly pale ENT: Normal nose; no rhinorrhea; moist mucous membranes; pharynx without lesions noted NECK: Supple without meningismus; non-tender; no cervical lymphadenopathy, no masses CARD: Regular rate and rhythm; no murmurs; symmetric distal pulses RESP: Normal chest excursion without splinting or tachypnea; breath sounds clear and equal bilaterally ABD/GI: Normal bowel sounds; non-distended; soft, non-tender to deep palpation of all 4 quadrants of the abdomen : Patient has no obvious gross blood. Multiple external thrombosed appearing hemorrhoids. Hemoccult positive BACK: The back appears normal and is non-tender to palpation EXT: Normal ROM in all joints; non-tender to palpation; no edema SKIN: No acute lesions noted NEURO: CN 2-12 intact; 5/5 bilateral upper and lower extremity strength with sensation intact to light touch PSYCH: The patient's mood and manner are appropriate. Grooming and personal hygiene are appropriate. TRAVEL OUTSIDE OF THE [place] IN LAST 30 DAYS: No - Related Data Allergies/Adverse Reactions: No Known Allergies Allergy (Verified 08/29/19 00:18) Past Medical History - Social History Smoking Status: Unknown if Ever Smoked Family History: Reviewed & Not Pertinent - Past Medical History Cardiac Medical History: Reports: Hx Congestive Heart Failure, Hx Coronary Artery Disease, Hx Heart Attack - x2, Hx Hypercholesterolemia, Hx Hypertension Pulmonary Medical History: Reports: Hx Asthma, Hx Bronchitis, Hx COPD Renal/ Medical History: Denies: Hx Peritoneal Dialysis Musculoskeletal Medical History: Reports Hx Arthritis, Reports Hx Musculoskeletal Deformity, Reports Hx Musculoskeletal Trauma Psychiatric Medical History: Denies: Hx Depression Traumatic Medical History: Reports: Hx Fractures - Foot Past Surgical History: Reports: Hx Abdominal Surgery - 2 hernias, Hx Cardiac Catheterization - 2stents, Hx Cardiac Surgery - pacer/defib, Hx Orthopedic Surgery - 2 back sx - Immunizations Immunizations up to date: Yes Hx Diphtheria, Pertussis, Tetanus Vaccination: Yes - 08-16-12 Hx Pneumococcal Vaccination: 07/30/18 Physical Exam - Vital signs Vitals: Resp 21 H 08/14/20 13:33 Course - Re-evaluation Re-evalutation: Given the above history and physical examination, we will place the patient on the monitor and obtain an EKG, cardiac panel, hemoglobin level, and reassess. I would like to evaluate for the possibility of electrolyte disturbance, myoca rdial infarction, or acute anemia. 08/14/20 13:56 EKG shows a heart of 73, ventricular paced complexes, no obvious ST elevation or depression 08/14/20 15:25 Hemoglobin as recorded. I believe given that the patient has symptomatic anemia he will require transfusion once again. I will speak to the hospitalist once again here. 08/14/20 15:38 Patient's hemoglobin as recorded. No active hemorrhage. Vital signs otherwise stable. I have spoken to the hospitalist here who does believe that the patient may require banding. He does not believe that this is an inpatient necessity. He has asked me to call the surgeon. I did speak directly to the surgeon and the hospitalist who admitted the patient and discharge the patient on the last service. This is the surgeon who actually performed the colonoscopy and endoscopy. He does not believe also that the patient requires admission. He is asked to provide 2 units of blood and have the patient follow-up in the outpatient clinic. I have explained this to the patient and the family. - Vital Signs Vital signs: Temp Pulse Resp BP Pulse Ox 97.7 F 17 114/54 L 96 08/14/20 13:41 08/14/20 14:41 08/14/20 14:41 08/14/20 14:41 - Laboratory Results Result Diagrams: 08/14/20 13:40 08/14/20 13:40 Laboratory Results Interpreted: 08/14/20 08/14/20 08/14/20 13:40 13:40 13:40 RBC 2.70 L Hgb 7.2 L Hct 22.6 L MCH 26.8 L MCHC 31.9 L RDW 16.5 H PT 18.0 H Sodium 134.4 L Creatinine 1.40 H Est GFR (MDRD) Non-Af 50 L Glucose 122 H ALT 74 H Crossmatch 08/14/20 13:40 RBC Hgb Hct MCH MCHC RDW PT Sodium Creatinine Est GFR (MDRD) Non-Af Glucose ALT Crossmatch See Detail Critical Laboratory Results Reviewed: Yes Attending or Supervising Physician who Reviewed Labs: [place] - HBG - Radiology Results Critical Radiology Results Reviewed: No Critical Results Critical Care Note - Critical Care Note Total time excluding time spent on procedures (mins): 35 Discharge - Discharge Clinical Impression: Acute blood loss anemia Condition: Fair Disposition: HOME, SELF-CARE Additional Instructions: Come back immediately with any lightheadedness, increased bleeding, dizziness, weakness or numbness, chest pain, or any other acute problems. Please make sure that you call the other surgical center and tell them that you were seen in the emergency department you were supposed to follow-up as an outpatient for further evaluation and treatment this week for hemorrhoid bleeding. Referrals: [facility] [Provider Group] - Follow up as needed
[2020-08-14 14:16] LABS: ABSOLUTE EOSINOPHILS # (AUTO) 0.1 10^3/uL (0.0-0.6); ABSOLUTE LYMPHOCYTES (AUTO) 1.8 10^3/uL (0.5-4.7); ABSOLUTE MONOCYTES (AUTO) 0.7 10^3/uL (0.1-1.4); ABSOLUTE NEUT (AUTO) 5.2 10^3/uL (1.7-8.2); BASOPHILS % (AUTO) 0.4 % (0-2); EOSINOPHILS % (AUTO) 1.6 % (0-6); HEMATOCRIT 22.6 % (37.9-51.0); INTERNATIONAL RATION (INR) 1.47; LYMPHOCYTES % (AUTO) 22.6 % (13-45); MEAN CORPUSCULAR HEMOGLOBIN 26.8 pg (27.0-33.4); MEAN CORPUSCULAR HGB CONC 31.9 g/dL (32.0-36.0); MEAN CORPUSCULAR VOLUME 84 fl (80-97); MONOCYTES % (AUTO) 8.7 % (3-13); PLATELET COUNT 338 10^3/uL (150-450); RED CELL DISTRIBUTION WIDTH 16.5 % (11.5-14.0); SEGMENTED NEUTROPHILS % (AUTO) 66.7 % (42-78); TOTAL CELLS COUNTED % (AUTO) 100 %; WHITE BLOOD COUNT 7.8 10^3/uL (4.0-10.5)
[2020-08-14 14:19] LABS: HEMOGLOBIN 7.2 g/dL (13.5-17.0)
[2020-08-14 14:31] LABS: ALBUMIN 3.6 g/dL (3.5-5.0); ALKALINE PHOSPHATASE 55 U/L (38-126); ANION GAP 8 (5-19); ASPARTATE AMINO TRANSFERASE 52 U/L (17-59); BILIRUBIN,DIRECT 0.1 mg/dL (0.0-0.4); BILIRUBIN,TOTAL 0.4 mg/dL (0.2-1.3); BLOOD UREA NITROGEN 18 mg/dL (7-20); CALCIUM 8.9 mg/dL (8.4-10.2); CARBON DIOXIDE 27 mmol/L (22-30); CHLORIDE 99 mmol/L (98-107); GLUCOSE 122 mg/dL (75-110); POTASSIUM 4.4 mmol/L (3.6-5.0); TOTAL PROTEIN 6.4 g/dL (6.3-8.2)
[2020-08-14] MEDS ORDERED: NORMAL SALINE 250 ML IV PRN ×2 (15:35)
[2020-08-14] MEDS ORDERED: FUROSEMIDE INJ/PF 40 MG/4 ML SDV IV ONE (16:01)
[2020-08-14] MEDS ORDERED: FUROSEMIDE INJ/PF 40 MG/4 ML SDV ONE (19:08)
--- NOTE | 2020-08-14 21:59 | EKG REPORT ---
SEVERITY:- ABNORMAL ECG - VENTRICULAR-PACED COMPLEXES : Confirmed by: Jacqueline Knox MD 14-Aug-2020 21:58:21
[2020-08-14 23:39] VITALS: BP 115/59
== END 2020-08-14 23:39 | disposition home or self-care (01) ==
LOC: ER 13:14
DX: D62 Acute posthemorrhagic anemia (principal); R42 Dizziness and giddiness; K64.2 Third degree hemorrhoids; R19.5 Other fecal abnormalities; I25.10 Atherosclerotic heart disease of native coronary artery without angina pectoris; I10 Essential (primary) hypertension; I25.2 Old myocardial infarction; J44.9 Chronic obstructive pulmonary disease, unspecified; Z79.01 Long term (current) use of anticoagulants; Z95.2 Presence of prosthetic heart valve; Z98.890 Other specified postprocedural states
CPT/HCPCS: 93005; 99284; 96374; 86900; 86901; 36415; 36430; 86850; 85025; 85610; 80053; 84484; 86920; 93010; P9016; J1940

== ENCOUNTER 2020-08-25 09:01 | Inpatient (IN) | payer MEDICARE, MEDICAID ==
[2020-08-25 10:27] LABS: ALBUMIN 3.4 g/dL (3.5-5.0); ALKALINE PHOSPHATASE 53 U/L (38-126); ANION GAP 8 (5-19); ASPARTATE AMINO TRANSFERASE 53 U/L (17-59); BILIRUBIN,DIRECT 0.2 mg/dL (0.0-0.4); BILIRUBIN,TOTAL 0.4 mg/dL (0.2-1.3); BLOOD UREA NITROGEN 19 mg/dL (7-20); CALCIUM 9.1 mg/dL (8.4-10.2); CARBON DIOXIDE 25 mmol/L (22-30); CHLORIDE 103 mmol/L (98-107); GLUCOSE 131 mg/dL (75-110); POTASSIUM 4.3 mmol/L (3.6-5.0); TOTAL PROTEIN 6.2 g/dL (6.3-8.2)
[2020-08-25 10:38] LABS: ABSOLUTE BASOPHILS # (AUTO) 0.1 10^3/uL (0.0-0.2); ABSOLUTE EOSINOPHILS # (AUTO) 0.2 10^3/uL (0.0-0.6); ABSOLUTE LYMPHOCYTES (AUTO) 2.2 10^3/uL (0.5-4.7); ABSOLUTE NEUT (AUTO) 5.4 10^3/uL (1.7-8.2); EOSINOPHILS % (AUTO) 2.6 % (0-6); LYMPHOCYTES % (AUTO) 24.4 % (13-45); MEAN CORPUSCULAR HEMOGLOBIN 25.7 pg (27.0-33.4); MEAN CORPUSCULAR HGB CONC 32.8 g/dL (32.0-36.0); MONOCYTES % (AUTO) 11.5 % (3-13); PLATELET COUNT 330 10^3/uL (150-450); RED BLOOD COUNT 2.68 10^6/uL (4.35-5.55); RED CELL DISTRIBUTION WIDTH 17.1 % (11.5-14.0); SEGMENTED NEUTROPHILS % (AUTO) 60.5 % (42-78); TOTAL CELLS COUNTED % (AUTO) 100 %; WHITE BLOOD COUNT 8.9 10^3/uL (4.0-10.5)
[2020-08-25 10:40] LABS: HEMOGLOBIN 6.9 g/dL (13.5-17.0)
[2020-08-25 10:41] LABS: MEAN CORPUSCULAR VOLUME 78 fl (80-97)
[2020-08-25 11:27] LABS: APPEARANCE,URINE CLEAR; BILIRUBIN,URINE NEGATIVE (NEGATIVE); COLOR,URINE YELLOW; GLUCOSE, URINE NEGATIVE (NEGATIVE); KETONES,URINE NEGATIVE (NEGATIVE); LEUKOCYTE ESTERASE,URINE NEGATIVE (NEGATIVE); NITRITE,URINE NEGATIVE (NEGATIVE); PROTEIN,URINE NEGATIVE (NEGATIVE); URINE SPECIFIC GRAVITY 1.012; UROBILINOGEN,URINE NEGATIVE mg/dL (<2.0)
[2020-08-25] MEDS ORDERED: NORMAL SALINE 250 ML IV PRN ×2 (11:57)
[2020-08-25] MEDS ORDERED: PANTOPRAZOLE SODIUM 40 MG VIAL IV ONE (12:01)
[2020-08-25 12:17] LABS: INTERNATIONAL RATION (INR) 1.05; PROTHROMBIN TIME 13.9 SEC (11.4-15.4)
[2020-08-25 12:18] LABS: PARTIAL THROMBOPLASTIN TIME 27.9 SEC (23.5-35.8)
--- NOTE | 2020-08-25 13:44 | ER Document Report ---
Entered by ALETHA LAIRD SCRIBE 08/25/20 1128 Acting as scribe for:BRANDON RAND MD ED GI Bleed / Rectal Pain - General Chief Complaint: Rectal Bleeding Stated Complaint: BLEEDING FROM HEMORRHOIDS Mode of Arrival: Medic Information source: Patient, [facility] Records Notes: This 70 year old male patient with a history of hypertension, A fib on Xarelto, and CHF presents to the ED today via EMS with complaints of rectal bleeding from hemorrhoids that has been an ongoing problem for the last x3 months. Patient states that he had x2 hemorrhoids banded last week and hasn't actually seen bleeding per rectum since then, but he felt weak and dizzy, so he decided to come to the ED for evaluation. He stopped taking his Xarelto about x5 days ago. He mentions that he was in the hospital x10 days ago and received x4 units of blood. He also mentions that he was started on iron tablets x1.5 weeks ago and that his stools have been dark and tarry. Per [facility] records, patient had an EGD and colonoscopy done by Dr. Avery on 08/04 which revealed no active bleeding, masses, or polyps. He denies any chest pain, syncope, or abdominal pain. TRAVEL OUTSIDE OF THE [place] IN LAST 30 DAYS: No - Related Data Allergies/Adverse Reactions: No Known Allergies Allergy (Verified 08/29/19 00:18) Past Medical History - General Information source: Patient, [facility] Records - Social History Smoking Status: Former Smoker Cigarette use (# per day): No Chew tobacco use (# tins/day): No Smoking Education Provided: No Frequency of alcohol use: None Drug Abuse: None Family History: Reviewed & Not Pertinent - Past Medical History Cardiac Medical History: Reports: Hx Congestive Heart Failure, Hx Coronary Artery Disease, Hx Heart Attack - x2, Hx Hypercholesterolemia, Hx Hypertension Pulmonary Medical History: Reports: Hx Asthma, Hx Bronchitis, Hx COPD, Hx Sleep Apnea GI Medical History: Reports: Hx Colonoscopy Musculoskeletal Medical History: Reports Hx Arthritis, Reports Hx Musculoskeletal Deformity, Reports Hx Musculoskeletal Trauma Traumatic Medical History: Reports: Hx Fractures - Foot Past Surgical History: Reports: Hx Cardiac Catheterization - 2stents, Hx Cardiac Surgery - pacer/defib, Hx Herniorrhaphy - x2, Hx Orthopedic Surgery - 2 back sx - Immunizations Immunizations up to date: Yes Hx Diphtheria, Pertussis, Tetanus Vaccination: Yes - 08-16-12 Hx Pneumococcal Vaccination: 07/30/18 Review of Systems - Review of Systems Constitutional: See HPI, Weakness EENT: No symptoms reported Cardiovascular: See HPI, Dizziness. denies: Chest pain, Syncope Respiratory: No symptoms reported Gastrointestinal: See HPI, Black stools, Rectal bleeding. denies: Abdominal pain Genitourinary: No symptoms reported Male Genitourinary: No symptoms reported Musculoskeletal: No symptoms reported Skin: No symptoms reported Hematologic/Lymphatic: No symptoms reported Neurological/Psychological: No symptoms reported -: Yes All other systems reviewed and negative Physical Exam - Vital signs Vitals: Temp Resp BP Pulse Ox 97.9 F 12 109/55 L 98 08/25/20 09:25 08/25/20 09:25 08/25/20 09:25 08/25/20 09:25 - General General appearance: Alert In distress: None - HEENT Head: Normocephalic, Atraumatic Eyes: Normal Pupils: PERRL - Respiratory Respiratory status: No respiratory distress Chest status: Nontender Breath sounds: Normal Chest palpation: Normal - Cardiovascular Rhythm: Regular Heart sounds: Normal auscultation, S1 appreciated, S2 appreciated Murmur: No Friction rub: No Gallop: None auscultated Normal capillary refill: Yes - <3 seconds in all digits - Abdominal Inspection: Obese Distension: No distension Bowel sounds: Normal Tenderness: Nontender - Abdomen soft Organomegaly: No organomegaly - Rectal Stool: Heme positive, See lab result, Other - Brown stool. No: Bloody Hemorrhoids: External Notes: [employer] Technical Architect present - Extremities General upper extremity: Normal inspection General lower extremity: Normal inspection. No: Edema - Neurological Neuro grossly intact: Yes Orientation: AAOx4 [place] Coma Scale Eye Opening: Spontaneous [place] Coma Scale Verbal: Oriented [place] Coma Scale Motor: Obeys Commands [place] Coma Scale Total: 15 - Psychological Associated symptoms: Normal affect, Normal mood - Skin Skin Temperature: Warm Skin Moisture: Dry Skin Color: Pale Course - Re-evaluation Re-evalutation: 08/25/20 19:07 Patient resting comfortably and has received the first IV transfusion of packed red blood cells. - Vital Signs Vital signs: Temp Pulse Resp BP Pulse Ox 97.9 F 81 25 H 135/80 H 100 08/25/20 18:10 08/25/20 16:42 08/25/20 18:31 08/25/20 18:31 08/25/20 18:31 08/25/20 19:08 Vital signs stable - Laboratory Results Result Diagrams: 08/25/20 09:23 08/25/20 09:23 Laboratory Results Interpreted: 08/25/20 08/25/20 08/25/20 09:23 09:23 09:23 RBC 2.68 L Hgb 6.9 L Hct 21.0 L MCV 78 L D MCH 25.7 L RDW 17.1 H Sodium 136.0 L Creatinine 1.29 H Est GFR (MDRD) Non-Af 55 L Glucose 131 H Iron TIBC Ferritin ALT 74 H Total Protein 6.2 L Albumin 3.4 L Crossmatch See Detail 08/25/20 09:23 RBC Hgb Hct MCV MCH RDW Sodium Creatinine Est GFR (MDRD) Non-Af Glucose Iron 19.2 L TIBC 481 H Ferritin 14.80 L ALT Total Protein Albumin Crossmatch 08/25/20 19:08 Laboratory was abnormal with a hemoglobin of 6.9 MCV is 78 red blood cell count low as well as well as a night iron level at 19. Patient has a critically low hemoglobin at this time. Critical Laboratory Results Reviewed: Yes Attending or Supervising Physician who Reviewed Labs: BRANDON RAND - Critical hemoglobin 6.9 - Radiology Results Critical Radiology Results Reviewed: No Critical Results Discharge - Discharge Clinical Impression: Bleeding hemorrhoids, Anemia, Generalized weakness Condition: Good Disposition: ADMITTED INPATIENT Admitting Provider: Agus (Hospitalist) Unit Admitted: Medical Floor I personally performed the services described in the documentation, reviewed and edited the documentation which was dictated to the scribe in my presence, and it accurately records my words and actions.
[2020-08-25 13:59] LABS: ABSOLUTE RETICS # 0.073 10^6/uL (0.028-0.122); RETICULOCYTE COUNT (AUTO) 2.74 % (0.66-2.85)
[2020-08-25 14:08] LABS: IRON(TIBC) 19.2 ug/dL (49-181)
[2020-08-25] MEDS ORDERED: MAGNESIUM HYDROXIDE SUSP 30 ML UDCUP PO PRN (16:27)
[2020-08-25] MEDS ORDERED: MAG HYDROX/AL HYDROX/SIMETH SUSP 30 ML UDCUP PO PRN (16:27)
[2020-08-25] MEDS ORDERED: ACETAMINOPHEN 325 MG TABLET PO PRN (16:27)
--- NOTE | 2020-08-25 16:27 | PDOC H&P ---
History of Present Illness Admission Date/PCP: 08/25/20 14:17 ERLINDA HERNANDEZ MD Patient complains of: GI bleed History of Present Illness: RIKKI LAMBERT is a 70 year old male who has been admitted in the past with GI bleeding. Recent endoscopy (08/04/2020) did not reveal any active bleeding lesions both upper and lower GI tract. He does have multiple hemorrhoids. He recently had several hemorrhoids banded by Dr. Avery approximately 2 weeks ago. He has been experiencing bright red blood per rectum. It is most likely hemorrhoidal. Because of his atrial fibrillation he is chronic Eliquis therapy. In addition he was started on iron for his iron deficiency. Additional history includes coronary artery disease with chronic persistent atrial fibrillation requiring anticoagulation. Hypertension and hyperlipidemia. He also has heart failure. He is not sure if it is diastolic or systolic. It is not clinically relevant to obtain an echocardiogram during this admission to discern the exact etiology. Patient received 2 units of packed red blood cells emergency department. Will be admitted and monitored on telemetry. Serial CBCs. Past Medical History Cardiac Medical History: Reports: Congestive Heart Failure, Coronary Artery Disease, Myocardial Infarction - x2, Hyperlipidema, Hypertension Pulmonary Medical History: Reports: Asthma, Bronchitis, Chronic Obstructive Pulmonary Disease (COPD), Sleep Apnea Musculoskeltal Medical History: Reports: Arthritis Psychiatric Medical History: Denies: Depression Hematology: Reports: Anemia - Iron deficiency Past Surgical History Past Surgical History: Reports: Cardiac Catheterization - 2stents, Herniorrhaphy - x2, Orthopedic Surgery - 2 back sx Social History Information Source: Patient Lives with: Family Smoking Status: Former Smoker Electronic Cigarette use?: No Frequency of Alcohol Use: None Hx Recreational Drug Use: No Drugs: None Hx Prescription Drug Abuse: No - Advance Directive Resuscitation Status: Full Code Surrogate healthcare decision maker:: Patient declining himself full code and actually stated he is doing more first- order. His daughter in fact is the decision maker (Colleen Jay) Family History Family History: Reviewed & Not Pertinent Parental Family History Reviewed: Yes Children Family History Reviewed: Yes Sibling(s) Family History Reviewed.: Yes Medication/Allergy Home Medications: Carvedilol [Coreg 25 mg Tablet] 25 mg PO Q12 10/17/18 Lisinopril [Zestril] 10 mg PO QAM 10/17/18 Amiodarone HCl [Cordarone 200 mg Tablet] 200 mg PO BID 08/02/20 Furosemide [Lasix 40 mg Tablet] 40 mg PO BID 08/02/20 Potassium Chloride 40 meq PO DAILY 08/02/20 Pravastatin Sodium 20 mg PO QHS 08/02/20 Aspirin [Ecotrin 81 mg EC Tablet] 81 mg PO DAILY tabec 08/05/20 Phenyleph/Pramoxin/Glycr/W.pet [Preparation H Cream] 1 applic RC BID PRN #1 tube 08/05/20 Rivaroxaban [Xarelto 15 mg Tablet] 15 mg PO WSUPPER #30 tablet 08/05/20 Allergies/Adverse Reactions: No Known Allergies Allergy (Verified 08/29/19 00:18) Review of Systems All systems: reviewed and no additional remarkable complaints except as stated Gastrointestinal: PRESENT: other - Bright red blood per rectum Hematologic/Lymphatic: PRESENT: easy bleeding Physical Exam Vital Signs: Temp Pulse Resp BP Pulse Ox 98.1 F 80 11 L 136/61 H 99 08/25/20 15:01 08/25/20 15:01 08/25/20 15:01 08/25/20 15:01 08/25/20 15:01 Intake & Output 08/24/20 08/25/20 08/26/20 06:59 06:59 06:59 Intake Total 300 Balance 300 General appearance: PRESENT: no acute distress, cooperative, well-developed Head exam: PRESENT: atraumatic, normocephalic Eye exam: PRESENT: conjunctiva pale, EOMI, PERRLA. ABSENT: scleral icterus Ear exam: PRESENT: normal external ear exam. ABSENT: bleeding, drainage Mouth exam: PRESENT: moist, tongue midline Teeth exam: PRESENT: poor dentation Neck exam: ABSENT: carotid bruit, JVD, lymphadenopathy, tracheostomy Respiratory exam: PRESENT: clear to auscultation kilo, symmetrical, unlabored. ABSENT: chest wall tenderness, prolonged expiratory phas, rales, rhonchi, tachypnea, wheezes Cardiovascular exam: PRESENT: RRR, +S1, +S2. ABSENT: bradycardia, diastolic murmur, irregular rhythm, systolic murmur, tachycardia GI/Abdominal exam: PRESENT: soft, other - Protuberant abdomen. ABSENT: tenderne ss Rectal exam: PRESENT: deferred, other - FOB positive Gentrourinary exam: ABSENT: indwelling catheter Extremities exam: ABSENT: pedal edema Musculoskeletal exam: PRESENT: ambulatory, normal inspection. ABSENT: deformity, dislocation Neurological exam: PRESENT: alert, awake, oriented to person, oriented to place, oriented to time, oriented to situation, CN II-XII grossly intact. ABSENT: altered, motor sensory deficit Psychiatric exam: PRESENT: appropriate affect, normal mood. ABSENT: agitated, anxious Focused psych exam: ABSENT: delusional, paranoid, restlessness Skin exam: PRESENT: dry, pallor, warm. ABSENT: rash Results Laboratory Results: 08/25/20 09:23 08/25/20 09:23 08/25/20 08/25/20 08/25/20 09:23 09:23 09:23 WBC 8.9 RBC 2.68 L Hgb 6.9 L Hct 21.0 L MCV 78 L D MCH 25.7 L MCHC 32.8 RDW 17.1 H Plt Count 330 Seg Neutrophils % 60.5 Retic Count (auto) Sodium 136.0 L Potassium 4.3 Chloride 103 Carbon Dioxide 25 Anion Gap 8 BUN 19 Creatinine 1.29 H Est GFR ( Amer) > 60 Glucose 131 H Calcium 9.1 Iron TIBC % Saturation Ferritin Total Bilirubin 0.4 AST 53 Alkaline Phosphatase 53 Total Protein 6.2 L Albumin 3.4 L Lipase 66.1 Vitamin B12 Folate Urine Color Urine Appearance Urine pH Ur Specific [place] Urine Protein Urine Glucose (UA) Urine Ketones Urine Blood Urine Nitrite Ur Leukocyte Esterase Urine WBC (Auto) Urine RBC (Auto) Blood Type O POSITIVE Antibody Screen NEGATIVE 08/25/20 08/25/20 08/25/20 09:23 09:23 10:51 WBC RBC Hgb Hct MCV MCH MCHC RDW Plt Count Seg Neutrophils % Retic Count (auto) 2.74 Sodium Potassium Chloride Carbon Dioxide Anion Gap BUN Creatinine Est GFR ( Amer) Glucose Calcium Iron 19.2 L TIBC 481 H % Saturation 4 Ferritin 14.80 L Total Bilirubin AST Alkaline Phosphatase Total Protein Albumin Lipase Vitamin B12 380.0 Folate 14.80 Urine Color YELLOW Urine Appearance CLEAR Urine pH 6.0 Ur Specific [place] 1.012 Urine Protein NEGATIVE Urine Glucose (UA) NEGATIVE Urine Ketones NEGATIVE Urine Blood NEGATIVE Urine Nitrite NEGATIVE Ur Leukocyte Esterase NEGATIVE Urine WBC (Auto) 1 Urine RBC (Auto) 0 Blood Type Antibody Screen Assessment and Plan - Diagnosis (4) Anemia due to acute blood loss Is this a current diagnosis for this admission?: Yes (5) Iron deficiency anemia Qualifiers: Iron deficiency anemia type: other iron deficiency Qualified Code(s): D50.8 - Other iron deficiency anemias Is this a current diagnosis for this admission?: Yes (6) Hypertension Qualifiers: Hypertension type: essential hypertension Qualified Code(s): I10 - Essential (primary) hypertension Is this a current diagnosis for this admission?: Yes - Plan Summary Summary: 08/25/2020 GI bleed-most likely hemorrhoidal. Received 2 units of packed red blood cells in the emergency department. Monitor serial CBCs. Hold Eliquis temporarily. Atrial fibrillation-continue Coreg (he is no longer on amiodarone) and monitor on telemetry Hypertension-currently on lisinopril and furosemide with potassium supplement. Monitor blood pressure and treat accordingly Coronary artery disease-continue statin therapy, aspirin as well as carvedilol, lisinopril and furosemide Hyperlipidemia-utilize atorvastatin while hospitalized and return to pravastatin at discharge Iron deficiency-the patient's anemia is multifactorial. He does have extremely low iron. He was started on oral iron but I will administer 100 mg of iron sucrose at this time. - Time Time Spent with patient: 35 or more minutes Medications reviewed and adjusted accordingly: Yes Anticipated Discharge Disposition: Home, Self Care Anticipated Discharge Timeframe: within 72 hours
[2020-08-25] MEDS: DOCUSATE SODIUM 100 MG CAPSULE PO SCH (18:37)
[2020-08-25] MEDS: CARVEDILOL 12.5 MG TABLET PO SCH (21:15)
[2020-08-25] MEDS ORDERED: ATORVASTATIN CALCIUM 20 MG TABLET PO SCH (22:00)
[2020-08-26] MEDS ORDERED: IRON SUCROSE COMPLEX INJ/PF 100 MG/5 ML SDV IV ONE (05:00)
[2020-08-26] MEDS ORDERED: PANTOPRAZOLE SODIUM 40 MG TABLET.DR PO SCH (06:00)
[2020-08-26 06:39] LABS: HEMATOCRIT 25.5 % (37.9-51.0); HEMOGLOBIN 8.7 g/dL (13.5-17.0); MEAN CORPUSCULAR HEMOGLOBIN 27.6 pg (27.0-33.4); MEAN CORPUSCULAR HGB CONC 34.1 g/dL (32.0-36.0); MEAN CORPUSCULAR VOLUME 81 fl (80-97); PLATELET COUNT 302 10^3/uL (150-450); RED BLOOD COUNT 3.15 10^6/uL (4.35-5.55); RED CELL DISTRIBUTION WIDTH 17.5 % (11.5-14.0); WHITE BLOOD COUNT 9.5 10^3/uL (4.0-10.5)
[2020-08-26 06:50] LABS: ANION GAP 7 (5-19); BLOOD UREA NITROGEN 19 mg/dL (7-20); CALCIUM 9.2 mg/dL (8.4-10.2); CARBON DIOXIDE 26 mmol/L (22-30); CHLORIDE 104 mmol/L (98-107); GLUCOSE 107 mg/dL (75-110); POTASSIUM 4.8 mmol/L (3.6-5.0)
[2020-08-26] MEDS ORDERED: ASPIRIN 81 MG TABLET, ENT COATED PO SCH (10:00)
[2020-08-26] MEDS ORDERED: FUROSEMIDE 40 MG TABLET PO SCH (10:00)
[2020-08-26] MEDS ORDERED: POTASSIUM CHLORIDE 10 MEQ TABLET.ER PO SCH (10:00)
[2020-08-26] MEDS: DOCUSATE SODIUM 100 MG CAPSULE PO SCH (10:12)
[2020-08-26] MEDS: CARVEDILOL 12.5 MG TABLET PO SCH (10:12)
[2020-08-26 12:44] VITALS: BP 101/61
--- NOTE | 2020-08-26 19:51 | PDOC DISCHARGE SUMMARY ---
Impression - Admit/DC Date/PCP Admission Date/Primary Care Provider: 08/25/20 14:17 Discharge Date: 08/26/20 - Discharge Diagnosis (1) Anemia due to acute blood loss Is this a current diagnosis for this admission?: Yes (2) Hypertension Is this a current diagnosis for this admission?: Yes (3) Iron deficiency anemia Is this a current diagnosis for this admission?: Yes - Additional Information Resuscitation Status: Full Code Discharge Diet: Cardiac Discharge Activity: Activity As Tolerated, Balance Activity w/Rest, Slowly Increase Activity Referrals: JOSÉ MIGUEL HAYES MD [ACTIVE STAFF] - 09/04/20 9:15 am (Follow up as scheduled.) NEEMA PHIPPS PA-C [NO LOCAL MD] - 09/06/20 11:30 am ( SEND VISIT RECORDS TO FAX NUMBER , BEFORE THEY WILL SET UP AN APPT. ) FE MARTIN MD [NO LOCAL MD] - 09/30/20 3:40 pm (Follow up with your wood boring machine operator in 4-6 weeks. [phone]) Home Medications: Lisinopril [Zestril] 10 mg PO QAM 10/17/18 Amiodarone HCl [Cordarone 200 mg Tablet] 200 mg PO BID 08/02/20 Furosemide [Lasix 40 mg Tablet] 40 mg PO BID 08/02/20 Potassium Chloride 40 meq PO DAILY 08/02/20 Pravastatin Sodium 20 mg PO QHS 08/02/20 Phenyleph/Pramoxin/Glycr/W.pet [Preparation H Cream] 1 applic RC BID PRN #1 tube 08/05/20 Rivaroxaban [Xarelto 15 mg Tablet] 15 mg PO WSUPPER #30 tablet 08/26/20 History of Present Illiness History of Present Illness: Per H&P by Dr. Goldsmith: RIKKI LAMBERT is a 70 year old male who has been admitted in the past with GI bleeding. Recent endoscopy (08/04/2020) did not reveal any active bleeding lesions both upper and lower GI tract. He does have multiple hemorrhoids. He recently had several hemorrhoids banded by Dr. Hayes approximately 2 weeks ago. He has been experiencing bright red blood per rectum. It is most likely hemorrhoidal. Because of his atrial fibrillation he is chronic Eliquis therapy. In addition he was started on iron for his iron deficiency. Additional history includes coronary artery disease with chronic persistent atrial fibrillation requiring anticoagulation. Hypertension and hyperlipidemia. He also has heart failure. He is not sure if it is diastolic or systolic. It is not clinically relevant to obtain an echocardiogram during this admission to discern the exact etiology. Patient received 2 units of packed red blood cells emergency department. Will be admitted and monitored on telemetry. Serial CBCs. Hospital Course Hospital Course: The patient was admitted to the medical floor for acute blood loss anemia secondary to lower GI bleed. He received 2 units PRBC and IV Venofer for his chronic iron deficiency anemia. The patient underwent hemorrhoidal banding per Dr. Hayes last week. Spoke with Dr. Hayes who stated that the patient's bands likely fell off resulting in shallow ulcerations prone to bleeding, especially while anticoagulated on Eliquis and taking aspirin. Dr. Hayes advised that as the patient was hemodynamically stable, there was no indications for surgical intervention at this time. Patient is appropriate for discharge to home with outpatient follow up as was previously scheduled. This was discussed with the patient. He is now asymptomatic with no further grossly bloody stools. He is satisfied with the plan to discharge to home and to follow up with Dr. Hayes in the office next week. Physical Exam Vital Signs: Temp Pulse Resp BP Pulse Ox 98.0 F 76 18 135/80 H 98 08/26/20 12:36 08/26/20 12:36 08/26/20 12:36 08/26/20 12:36 08/26/20 12:36 Intake & Output 08/25/20 08/26/20 08/27/20 06:59 06:59 06:59 Intake Total 600 480 Balance 600 480 Weight 125.5 kg General appearance: PRESENT: no acute distress, cooperative, obese, well- developed, well-nourished Head exam: PRESENT: atraumatic, normocephalic Eye exam: PRESENT: conjunctiva pink, EOMI, PERRLA. ABSENT: scleral icterus Mouth exam: PRESENT: moist, tongue midline Respiratory exam: PRESENT: clear to auscultation kilo, symmetrical, unlabored, other - Room air. ABSENT: rales, rhonchi, wheezes Cardiovascular exam: PRESENT: RRR. ABSENT: diastolic murmur, rubs, systolic murmur Vascular exam: PRESENT: normal capillary refill GI/Abdominal exam: PRESENT: normal bowel sounds, soft. ABSENT: distended, guarding, mass, organolmegaly, rebound, tenderness Rectal exam: PRESENT: deferred Extremities exam: PRESENT: full ROM. ABSENT: calf tenderness, clubbing, pedal edema Musculoskeletal exam: PRESENT: ambulatory Neurological exam: PRESENT: alert, awake, oriented to person, oriented to place, oriented to time, oriented to situation, CN II-XII grossly intact. ABSENT: motor sensory deficit Psychiatric exam: PRESENT: appropriate affect, normal mood. ABSENT: homicidal ideation, suicidal ideation Skin exam: PRESENT: dry, intact, warm. ABSENT: cyanosis, rash Results Laboratory Results: WBC 9.5 10^3/uL (4.0-10.5) 08/26/20 05:17 RBC 3.15 10^6/uL (4.35-5.55) L 08/26/20 05:17 Hgb 8.7 g/dL (13.5-17.0) L 08/26/20 05:17 Hct 25.5 % (37.9-51.0) L 08/26/20 05:17 MCV 81 fl (80-97) 08/26/20 05:17 MCH 27.6 pg (27.0-33.4) 08/26/20 05:17 MCHC 34.1 g/dL (32.0-36.0) 08/26/20 05:17 RDW 17.5 % (11.5-14.0) H 08/26/20 05:17 Plt Count 302 10^3/uL (150-450) 08/26/20 05:17 Lymph % (Auto) 24.4 % (13-45) 08/25/20 09:23 [place] % (Auto) 11.5 % (3-13) 08/25/20 09:23 Eos % (Auto) 2.6 % (0-6) 08/25/20 09:23 Baso % (Auto) 1.0 % (0-2) 08/25/20 09:23 Reticulocyte # 0.073 10^6/uL (0.028-0.122) 08/25/20 09:23 Absolute Neuts (auto) 5.4 10^3/uL (1.7-8.2) 08/25/20 09:23 Absolute Lymphs (auto) 2.2 10^3/uL (0.5-4.7) 08/25/20 09:23 Absolute Monos (auto) 1.0 10^3/uL (0.1-1.4) 08/25/20 09:23 Absolute Eos (auto) 0.2 10^3/uL (0.0-0.6) 08/25/20 09:23 Absolute Basos (auto) 0.1 10^3/uL (0.0-0.2) 08/25/20 09:23 Seg Neutrophils % 60.5 % (42-78) 08/25/20 09:23 Retic Count (auto) 2.74 % (0.66-2.85) 08/25/20 09:23 PT 13.9 SEC (11.4-15.4) 08/25/20 09:23 INR 1.05 08/25/20 09:23 APTT 27.9 SEC (23.5-35.8) 08/25/20 09:23 Sodium 136.5 mmol/L (137-145) L 08/26/20 05:17 Potassium 4.8 mmol/L (3.6-5.0) 08/26/20 05:17 Chloride 104 mmol/L (98-107) 08/26/20 05:17 Carbon Dioxide 26 mmol/L (22-30) 08/26/20 05:17 Anion Gap 7 (5-19) 08/26/20 05:17 BUN 19 mg/dL (7-20) 08/26/20 05:17 Creatinine 1.23 mg/dL (0.52-1.25) 08/26/20 05:17 Est GFR ( Amer) > 60 (>60) 08/26/20 05:17 Est GFR (MDRD) Non-Af 58 (>60) L 08/26/20 05:17 Glucose 107 mg/dL (75-110) 08/26/20 05:17 Calcium 9.2 mg/dL (8.4-10.2) 08/26/20 05:17 Magnesium 2.4 mg/dL (1.6-2.3) H 08/26/20 05:17 Iron 19.2 ug/dL (49-181) L 08/25/20 09:23 TIBC 481 ug/dL (250-450) H 08/25/20 09:23 % Saturation 4 % 08/25/20 09:23 Ferritin 14.80 ng/mL (17.9-464.0) L 08/25/20 09:23 Total Bilirubin 0.4 mg/dL (0.2-1.3) 08/25/20 09:23 Direct Bilirubin 0.2 mg/dL (0.0-0.4) 08/25/20 09:23 Neonat Total Bilirubin Not Reportable 08/25/20 09:23 Neonat Direct Bilirubin Not Reportable 08/25/20 09:23 Neonat Indirect Bili Not Reportable 08/25/20 09:23 AST 53 U/L (17-59) 08/25/20 09:23 ALT 74 U/L (<50) H 08/25/20 09:23 Alkaline Phosphatase 53 U/L (38-126) 08/25/20 09:23 Total Protein 6.2 g/dL (6.3-8.2) L 08/25/20 09:23 Albumin 3.4 g/dL (3.5-5.0) L 08/25/20 09:23 Lipase 66.1 U/L (23-300) 08/25/20 09:23 Vitamin B12 380.0 pg/mL (239-931) 08/25/20 09:23 Folate 14.80 ng/mL (>2.76) 08/25/20 09:23 Urine Color YELLOW 08/25/20 10:51 Urine Appearance CLEAR 08/25/20 10:51 Urine pH 6.0 (5.0-9.0) 08/25/20 10:51 Ur Specific [place] 1.012 08/25/20 10:51 Urine Protein NEGATIVE mg/dL (NEGATIVE) 08/25/20 10:51 Urine Glucose (UA) NEGATIVE mg/dL (NEGATIVE) 08/25/20 10:51 Urine Ketones NEGATIVE mg/dL (NEGATIVE) 08/25/20 10:51 Urine Blood NEGATIVE (NEGATIVE) 08/25/20 10:51 Urine Nitrite NEGATIVE (NEGATIVE) 08/25/20 10:51 Urine Bilirubin NEGATIVE (NEGATIVE) 08/25/20 10:51 Urine Urobilinogen NEGATIVE mg/dL (<2.0) 08/25/20 10:51 Ur Leukocyte Esterase NEGATIVE (NEGATIVE) 08/25/20 10:51 Urine WBC (Auto) 1 /HPF 08/25/20 10:51 Urine RBC (Auto) 0 /HPF 08/25/20 10:51 Urine Ascorbic Acid NEGATIVE (NEGATIVE) 08/25/20 10:51 POC Stool Occult Blood POSITIVE (NEGATIVE) 08/25/20 11:38 Blood Type O POSITIVE 08/25/20 09:23 Antibody Screen NEGATIVE 08/25/20 09:23 Crossmatch See Detail 08/25/20 09:23 Plan Plan of Treatment: Patient is discharged home in stable condition. He is advised follow-up with his primary care provider within 1 week. He is instructed to follow-up with his established wood boring machine operator within 4 to 6 weeks. Follow-up with Dr. Hayes next week as was previously scheduled. He is instructed to continue holding his Xarelto until instructed to resume at his follow-up appointment with Dr. Hayes. He should otherwise take his medications as previously prescribed. He is instructed to return to the emergency department, as needed, for concerning symptoms. Time Spent: Greater than 30 Minutes Stroke Is this a Stroke Patient?: No Acute Heart Failure Is this a Heart Failure Patient?: No
== END 2020-08-26 13:51 | disposition home or self-care (01) | DRG 378 ==
LOC: ER 09:01 → EH 14:17 → 4W 20:23
PROVIDERS: ADMIT Hospitalist; ATTEND Registered Nurse
PROC: 30233N1 Transfusion of Nonautologous Red Blood Cells into Peripheral Vein, Percutaneous Approach (ICD-10-PCS; principal; 2020-08-25)
DX: K62.5 Hemorrhage of anus and rectum (principal); D62 Acute posthemorrhagic anemia; I48.19 Other persistent atrial fibrillation; I11.0 Hypertensive heart disease with heart failure; I50.9 Heart failure, unspecified; D50.9 Iron deficiency anemia, unspecified; I25.10 Atherosclerotic heart disease of native coronary artery without angina pectoris; E78.5 Hyperlipidemia, unspecified; E66.9 Obesity, unspecified; J44.9 Chronic obstructive pulmonary disease, unspecified; G47.30 Sleep apnea, unspecified; M19.90 Unspecified osteoarthritis, unspecified site; K64.4 Residual hemorrhoidal skin tags; Z79.899 Other long term (current) drug therapy; Z79.01 Long term (current) use of anticoagulants; I25.2 Old myocardial infarction; Z95.5 Presence of coronary angioplasty implant and graft; Z87.891 Personal history of nicotine dependence; Z79.82 Long term (current) use of aspirin
CPT/HCPCS: 36415; 36430; 80048; 80053; 81001; 82270; 82607; 82728; 82746; 83540; 83550; 83690; 83735; 85025; 85027; 85045; 85610; 85730; 86850; 86900; 86901; 86920; 96374; 99285; C9113; J1756; J3490; P9016